=== PATIENT | female | born 1960 | race Caucasian/White ===

== ENCOUNTER 2018-03-26 16:39 | Emergency (ER) | payer OTHER, SELFPAY ==
[2018-03-26 16:43] VITALS: BP 176/84; PULSE 69; RESP 15; TEMP 36.3; O2SAT 100; BMI 22.7
--- NOTE | 2018-03-26 16:57 | DI.RAD.S_ITS ---
PROCEDURE: XR CHEST 1V INDICATIONS: Chest pain TECHNIQUE: One view of the chest was acquired. COMPARISON: None. FINDINGS: Surgical changes and devices: None. Lungs and pleura: Lungs are clear. No pleural effusions or pneumothorax. Mediastinum: Mediastinal contours appear normal. Heart size is normal. Bones and chest wall: No suspicious bony lesions. Overlying soft tissues appear unremarkable. IMPRESSION: Portable chest within normal limits. Dictated by: Kishor Snowden M.D. on 03/26/2018 at 16:28 Approved by: Kishor Snowden M.D. on 03/26/2018 at 16:28
[2018-03-26 17:00] VITALS: BP 144/76; PULSE 58; RESP 16; O2SAT 99
[2018-03-26] MEDS: ASPIRIN 81 MG TAB 324 MG PO (17:06)
--- NOTE | 2018-03-26 17:11 | ED.CHESTPAIN ---
HPI - Chest Pain <Tatyana Hendricks PA-C - Last Filed: 03/26/18 20:23> General Chief Complaint: Chest Pain Stated Complaint: Palpitations Time Seen by Provider: 03/26/18 16:55 Related Data Home Medications Medication Instructions Recorded Confirmed Acetaminophen/Diphenhydramin 1 tab PO HS #0 11/27/10 11/08/17 (#EXCEDRIN PM 500 MG-38 MG) [FISH OIL] #0 11/27/10 11/08/17 [MULTI VITAMIN] #0 11/27/10 11/08/17 aspirin 81 mg PO QDAY #0 06/18/12 11/08/17 Previous Rx's Medication Instructions Recorded triamcinolone acetonide 0 TOPICAL QDAY #30 gm 10/03/15 acyclovir 800 mg PO QDAY #90 tab 08/24/16 ketoconazole 2 % shampoo 1 applictn TOP Q2W #120 ml 11/08/17 montelukast 10 mg tablet 10 mg PO QPM #30 tab 11/08/17 metoprolol tartrate 50 mg tablet 50 mg PO BID #180 tab 02/17/18 Allergies Allergy/AdvReac Type Severity Reaction Status Date / Time adhesive Allergy Mild SENSITIVE Verified 11/08/17 13:31 TO TAPE CAUSES ITCHING PFSH <Tatyana Hendricks PA-C - Last Filed: 03/26/18 20:23> Medical History Carpal tunnel syndrome (Chronic) Chronic back pain (Chronic) Chronic neck pain (Chronic) Hayfever (Chronic) Hypertension (Chronic) Hyperthyroidism (Chronic 2014) SVT (supraventricular tachycardia) (Chronic 2014) Chicken pox (Resolved) Surgical History Anesthesia (Resolved) History of hip replacement (Resolved 11/2010) History of hip replacement (Resolved 06/2012) Social History marital status: Smoking Status: Former smoker alcohol intake: current (ON OCCASION ) substance use type: does not use Social History marital status: Smoking Status: Former smoker alcohol intake: current (ON OCCASION ) substance use type: does not use Exam <Tatyana Hendricks PA-C - Last Filed: 03/26/18 20:23> Initial Vital Signs Initial Vital Signs: Vital Signs Temperature 97.4 F L 03/26/18 16:43 Pulse Rate 69 03/26/18 16:43 Respiratory Rate 15 03/26/18 16:43 Blood Pressure 176/84 H 03/26/18 16:43 Pulse Oximetry 100 03/26/18 16:43 <DO Jeff Wade Last Filed: 04/02/18 00:57> Initial Vital Signs Initial Vital Signs: Vital Signs Temperature 97.4 F L 03/26/18 16:43 Pulse Rate 69 03/26/18 16:43 Respiratory Rate 15 03/26/18 16:43 Blood Pressure 176/84 H 03/26/18 16:43 Pulse Oximetry 100 03/26/18 16:43 Course <SCOTT Adams Last Filed: 03/26/18 20:23> Orders Ordered: Discontinued Medications Aspirin (Aspirin Chew) 324 mg PO NOW ONE Stop: 03/26/18 16:58 Last Admin: 03/26/18 17:06 Dose: 324 mg Vital Signs - 8 hr 03/26/18 18:00 03/26/18 18:30 03/26/18 20:11 Pulse Rate 63 74 72 Respiratory Rate 16 15 14 Blood Pressure [Right Arm] 139/77 137/74 133/66 Pulse Oximetry 100 100 98 <DO Jeff Wade Last Filed: 04/02/18 00:57> Orders Ordered: Discontinued Medications Aspirin (Aspirin Chew) 324 mg PO NOW ONE Stop: 03/26/18 16:58 Last Admin: 03/26/18 17:06 Dose: 324 mg Vital Signs - 8 hr 03/26/18 18:00 03/26/18 18:30 03/26/18 20:11 Pulse Rate 63 74 72 Respiratory Rate 16 15 14 Blood Pressure [Right Arm] 139/77 137/74 133/66 Pulse Oximetry 100 100 98 MDM - Chest Pain <SCOTT Adams Last Filed: 03/26/18 20:23> Lab Data Result diagrams: 03/26/18 17:12 03/26/18 17:12 Lab Results 03/26/18 03/26/18 03/26/18 Range/Units 17:12 17:12 17:12 WBC 6.5 (4.5-11.0) X10^3/uL RBC 4.53 (4.0-5.2) X10^6/uL Hgb 14.3 (12.0-16.0) g/dL Hct 42.2 (36-46) % MCV 93.3 (80-100) fL MCH 31.5 (26-34) PG MCHC 33.8 (30-36) % RDW 13.1 (11.6-14.8) % Plt Count 272 (150-400) X10^3/uL Neut % (Auto) 61.0 (50-75) % Lymph % (Auto) 31.6 (25-40) % Stewart % (Auto) 5.2 (3-14) % Eos % (Auto) 1.0 L (2-4) % Baso % (Auto) 1.2 (0-2) % Neut # (Auto) 4000 (8735-7901) /uL Lymph # (Auto) 2100 (9878-5073) /uL Stewart # (Auto) 300 (0-900) /uL Eos # (Auto) 100 (0-450) /uL Baso # (Auto) 100 (0-100) /uL Sodium 138 (137-145) mmol/L Potassium 4.0 (3.4-5.1) mmol/L Chloride 100 (98-107) mmol/L Carbon Dioxide 27 (22-32) mmol/L BUN 20 H (7-17) mg/dL Creatinine 0.80 (0.52-1.04) mg/dL Estimated GFR > 60.0 (>60) mL/min BUN/Creatinine Ratio 25.0 H (6-22) Glucose 96 (70-100) mg/dL Calcium 9.8 (8.4-10.2) mg/dL Total Bilirubin 0.7 (0.2-1.3) mg/dL AST 41 H (14-36) IU/L ALT 44 (9-52) IU/L Alkaline Phosphatase 72 (38-126) U/L Total Creatine Kinase 219 H (30-135) U/L CK-MB (CK-2) 1.93 (<2.37) ng/mL CK-MB (CK-2) Rel Index 0.9 L (1.5-5.0) % Troponin I < 0.012 (0.01-0.034) ng/mL B-Natriuretic Peptide < 100 (<100) Total Protein 8.2 (6.3-8.2) g/dL Albumin 5.0 (3.5-5.0) g/dL Globulin 3.2 (1.7-4.1) g/dL Albumin/Globulin Ratio 1.6 (1.0-2.8) Lipase 78 (23-300) U/L TSH 2.23 (0.47-4.68) uIU/mL Free T4 1.21 (0.78-2.19) ng/dL 03/26/18 Range/Units 19:07 WBC (4.5-11.0) X10^3/uL RBC (4.0-5.2) X10^6/uL Hgb (12.0-16.0) g/dL Hct (36-46) % MCV (80-100) fL MCH (26-34) PG MCHC (30-36) % RDW (11.6-14.8) % Plt Count (150-400) X10^3/uL Neut % (Auto) (50-75) % Lymph % (Auto) (25-40) % Stewart % (Auto) (3-14) % Eos % (Auto) (2-4) % Baso % (Auto) (0-2) % Neut # (Auto) (0353-7827) /uL Lymph # (Auto) (0764-5263) /uL Stewart # (Auto) (0-900) /uL Eos # (Auto) (0-450) /uL Baso # (Auto) (0-100) /uL Sodium (137-145) mmol/L Potassium (3.4-5.1) mmol/L Chloride (98-107) mmol/L Carbon Dioxide (22-32) mmol/L BUN (7-17) mg/dL Creatinine (0.52-1.04) mg/dL Estimated GFR (>60) mL/min BUN/Creatinine Ratio (6-22) Glucose (70-100) mg/dL Calcium (8.4-10.2) mg/dL Total Bilirubin (0.2-1.3) mg/dL AST (14-36) IU/L ALT (9-52) IU/L Alkaline Phosphatase (38-126) U/L Total Creatine Kinase 200 H (30-135) U/L CK-MB (CK-2) 1.91 (<2.37) ng/mL CK-MB (CK-2) Rel Index 1.0 L (1.5-5.0) % Troponin I < 0.012 (0.01-0.034) ng/mL B-Natriuretic Peptide (<100) Total Protein (6.3-8.2) g/dL Albumin (3.5-5.0) g/dL Globulin (1.7-4.1) g/dL Albumin/Globulin Ratio (1.0-2.8) Lipase (23-300) U/L TSH (0.47-4.68) uIU/mL Free T4 (0.78-2.19) ng/dL Urine Dip Bedside Urine Glucose Negative Bedside Urine Bilirubin - Negative Bedside Urine Ketone +/- 5 Urine Specific [place] 1.010 Bedside Urine Occult Blood - Negative Bedside Urine pH 6.0 Bedside Urine Protein - Negative Bedside Urine Urobilinogen - Negative Bedside Urine Nitrite - Negative Bedside Urine Leukocytes - Negative Esterase <Amita Perez, DO - Last Filed: 04/02/18 00:57> Lab Data Lab Results 03/26/18 03/26/18 03/26/18 Range/Units 17:12 17:12 17:12 WBC 6.5 (4.5-11.0) X10^3/uL RBC 4.53 (4.0-5.2) X10^6/uL Hgb 14.3 (12.0-16.0) g/dL Hct 42.2 (36-46) % MCV 93.3 (80-100) fL MCH 31.5 (26-34) PG MCHC 33.8 (30-36) % RDW 13.1 (11.6-14.8) % Plt Count 272 (150-400) X10^3/uL Neut % (Auto) 61.0 (50-75) % Lymph % (Auto) 31.6 (25-40) % Stewart % (Auto) 5.2 (3-14) % Eos % (Auto) 1.0 L (2-4) % Baso % (Auto) 1.2 (0-2) % Neut # (Auto) 4000 (4210-6540) /uL Lymph # (Auto) 2100 (4568-6191) /uL Stewart # (Auto) 300 (0-900) /uL Eos # (Auto) 100 (0-450) /uL Baso # (Auto) 100 (0-100) /uL Sodium 138 (137-145) mmol/L Potassium 4.0 (3.4-5.1) mmol/L Chloride 100 (98-107) mmol/L Carbon Dioxide 27 (22-32) mmol/L BUN 20 H (7-17) mg/dL Creatinine 0.80 (0.52-1.04) mg/dL Estimated GFR > 60.0 (>60) mL/min BUN/Creatinine Ratio 25.0 H (6-22) Glucose 96 (70-100) mg/dL Calcium 9.8 (8.4-10.2) mg/dL Total Bilirubin 0.7 (0.2-1.3) mg/dL AST 41 H (14-36) IU/L ALT 44 (9-52) IU/L Alkaline Phosphatase 72 (38-126) U/L Total Creatine Kinase 219 H (30-135) U/L CK-MB (CK-2) 1.93 (<2.37) ng/mL CK-MB (CK-2) Rel Index 0.9 L (1.5-5.0) % Troponin I < 0.012 (0.01-0.034) ng/mL B-Natriuretic Peptide < 100 (<100) Total Protein 8.2 (6.3-8.2) g/dL Albumin 5.0 (3.5-5.0) g/dL Globulin 3.2 (1.7-4.1) g/dL Albumin/Globulin Ratio 1.6 (1.0-2.8) Lipase 78 (23-300) U/L TSH 2.23 (0.47-4.68) uIU/mL Free T4 1.21 (0.78-2.19) ng/dL 03/26/18 Range/Units 19:07 WBC (4.5-11.0) X10^3/uL RBC (4.0-5.2) X10^6/uL Hgb (12.0-16.0) g/dL Hct (36-46) % MCV (80-100) fL MCH (26-34) PG MCHC (30-36) % RDW (11.6-14.8) % Plt Count (150-400) X10^3/uL Neut % (Auto) (50-75) % Lymph % (Auto) (25-40) % Stewart % (Auto) (3-14) % Eos % (Auto) (2-4) % Baso % (Auto) (0-2) % Neut # (Auto) (3636-6362) /uL Lymph # (Auto) (6421-1854) /uL Stewart # (Auto) (0-900) /uL Eos # (Auto) (0-450) /uL Baso # (Auto) (0-100) /uL Sodium (137-145) mmol/L Potassium (3.4-5.1) mmol/L Chloride (98-107) mmol/L Carbon Dioxide (22-32) mmol/L BUN (7-17) mg/dL Creatinine (0.52-1.04) mg/dL Estimated GFR (>60) mL/min BUN/Creatinine Ratio (6-22) Glucose (70-100) mg/dL Calcium (8.4-10.2) mg/dL Total Bilirubin (0.2-1.3) mg/dL AST (14-36) IU/L ALT (9-52) IU/L Alkaline Phosphatase (38-126) U/L Total Creatine Kinase 200 H (30-135) U/L CK-MB (CK-2) 1.91 (<2.37) ng/mL CK-MB (CK-2) Rel Index 1.0 L (1.5-5.0) % Troponin I < 0.012 (0.01-0.034) ng/mL B-Natriuretic Peptide (<100) Total Protein (6.3-8.2) g/dL Albumin (3.5-5.0) g/dL Globulin (1.7-4.1) g/dL Albumin/Globulin Ratio (1.0-2.8) Lipase (23-300) U/L TSH (0.47-4.68) uIU/mL Free T4 (0.78-2.19) ng/dL Urine Dip Bedside Urine Glucose Negative Bedside Urine Bilirubin - Negative Bedside Urine Ketone +/- 5 Urine Specific [place] 1.010 Bedside Urine Occult Blood - Negative Bedside Urine pH 6.0 Bedside Urine Protein - Negative Bedside Urine Urobilinogen - Negative Bedside Urine Nitrite - Negative Bedside Urine Leukocytes - Negative Esterase Discharge Plan Departure Patient Disposition: Home Clinical Impression: Heart palpitations, Exertional dyspnea Discharge Date/Time: 03/26/18 20:25 Interventions: ED Discharge Assessment Last Done: 03/26/18 20:24 Instructions: DI for Atypical Chest Pain, DI for Palpitations Activity Restrictions/Additional Instructions: Please return as we talked about if you have any acutely worsening symptoms, or new symptoms such as feeling faint, or new pain or swelling in your extremities, or actual chest pain, arm or jaw pain. Otherwise, please do not over exert but your usual activities are okay. You can take an extra 1/2 metoprolol if needed for your palpitations as you have been advised in the past. As we discussed, I am not sure that your palpitations and the shortness of breath that you have noticed with activity are connected. It is certainly possible that you are a little bit deconditioned since you had changed your exercise routine recently, but we want to the investigate this further with stress testing. I spoke with Dr. Lopez who is industrial relations analyst for Dr. Vipin covarrubias, and she is going to arrange to have you seen in the clinic sooner and get a stress test set up. She said that she will plan to have them call you tomorrow, but also you should call if you have not heard from them by lunchtime. While you are waiting to be seen, please take a baby (81mg) Aspirin once daily Prescriptions: No Action Acetaminophen/Diphenhydramin (#EXCEDRIN PM 500 MG-38 MG) 1 tab PO HS Qty: 0 RF: 0 [MULTI VITAMIN] Qty: 0 RF: 0 [FISH OIL] Qty: 0 RF: 0 aspirin 325 MG tablet,delayed release (DR/EC) 81 mg PO QDAY Qty: 0 RF: 0 triamcinolone acetonide 0.5 % ointment Topical QDAY Qty: 30 RF: 3 acyclovir 800 MG tablet 800 mg PO QDAY Qty: 90 RF: 3 metoprolol tartrate 50 mg tablet 50 mg PO BID Qty: 180 RF: 1 ketoconazole 2 % shampoo 1 applictn TOP Q2W Qty: 120 RF: 1 montelukast 10 mg tablet 10 mg PO QPM Qty: 30 RF: 1 Referrals: Tanya Lew MD [Primary Care Provider] - <Amita Perez DO - Last Filed: 04/02/18 00:57> Cosign ED Attending Cosignature Attestation: I was immediately available in the department for consultation. Documentation has been reviewed. I agree with assessment and plan. unfortunately chart information has been deleted and this will need to be redone by the original APC.
--- NOTE | 2018-03-26 17:16 | ED_ITS ---
HPI - Chest Pain <Tatyana Hendricks PA-C - Last Filed: 03/26/18 20:23> General Chief Complaint: Chest Pain Stated Complaint: Palpitations Time Seen by Provider: 03/26/18 16:55 Related Data Home Medications Medication Instructions Recorded Confirmed Acetaminophen/Diphenhydramin 1 tab PO HS #0 11/27/10 11/08/17 (#EXCEDRIN PM 500 MG-38 MG) [FISH OIL] #0 11/27/10 11/08/17 [MULTI VITAMIN] #0 11/27/10 11/08/17 aspirin 81 mg PO QDAY #0 06/18/12 11/08/17 Previous Rx's Medication Instructions Recorded triamcinolone acetonide 0 TOPICAL QDAY #30 gm 10/03/15 acyclovir 800 mg PO QDAY #90 tab 08/24/16 ketoconazole 2 % shampoo 1 applictn TOP Q2W #120 ml 11/08/17 montelukast 10 mg tablet 10 mg PO QPM #30 tab 11/08/17 metoprolol tartrate 50 mg tablet 50 mg PO BID #180 tab 02/17/18 Allergies Allergy/AdvReac Type Severity Reaction Status Date / Time adhesive Allergy Mild SENSITIVE Verified 11/08/17 13:31 TO TAPE CAUSES ITCHING PFSH <Tatyana Hendricks PA-C - Last Filed: 03/26/18 20:23> Medical History Carpal tunnel syndrome (Chronic) Chronic back pain (Chronic) Chronic neck pain (Chronic) Hayfever (Chronic) Hypertension (Chronic) Hyperthyroidism (Chronic 2014) SVT (supraventricular tachycardia) (Chronic 2014) Chicken pox (Resolved) Surgical History Anesthesia (Resolved) History of hip replacement (Resolved 11/2010) History of hip replacement (Resolved 06/2012) Social History marital status: Smoking Status: Former smoker alcohol intake: current (ON OCCASION ) substance use type: does not use Social History marital status: Smoking Status: Former smoker alcohol intake: current (ON OCCASION ) substance use type: does not use Exam <Tatyana Hendricks PA-C - Last Filed: 03/26/18 20:23> Initial Vital Signs Initial Vital Signs: Vital Signs Temperature 97.4 F L 03/26/18 16:43 Pulse Rate 69 03/26/18 16:43 Respiratory Rate 15 03/26/18 16:43 Blood Pressure 176/84 H 03/26/18 16:43 Pulse Oximetry 100 03/26/18 16:43 <DO Jeff Wade Last Filed: 04/02/18 00:57> Initial Vital Signs Initial Vital Signs: Vital Signs Temperature 97.4 F L 03/26/18 16:43 Pulse Rate 69 03/26/18 16:43 Respiratory Rate 15 03/26/18 16:43 Blood Pressure 176/84 H 03/26/18 16:43 Pulse Oximetry 100 03/26/18 16:43 Course <SCOTT Adams Last Filed: 03/26/18 20:23> Orders Ordered: Discontinued Medications Aspirin (Aspirin Chew) 324 mg PO NOW ONE Stop: 03/26/18 16:58 Last Admin: 03/26/18 17:06 Dose: 324 mg Vital Signs - 8 hr 03/26/18 18:00 03/26/18 18:30 03/26/18 20:11 Pulse Rate 63 74 72 Respiratory Rate 16 15 14 Blood Pressure [Right Arm] 139/77 137/74 133/66 Pulse Oximetry 100 100 98 <DO Jeff Wade Last Filed: 04/02/18 00:57> Orders Ordered: Discontinued Medications Aspirin (Aspirin Chew) 324 mg PO NOW ONE Stop: 03/26/18 16:58 Last Admin: 03/26/18 17:06 Dose: 324 mg Vital Signs - 8 hr 03/26/18 18:00 03/26/18 18:30 03/26/18 20:11 Pulse Rate 63 74 72 Respiratory Rate 16 15 14 Blood Pressure [Right Arm] 139/77 137/74 133/66 Pulse Oximetry 100 100 98 MDM - Chest Pain <SCOTT Adams Last Filed: 03/26/18 20:23> Lab Data Result diagrams: 03/26/18 17:12 03/26/18 17:12 Lab Results 03/26/18 03/26/18 03/26/18 Range/Units 17:12 17:12 17:12 WBC 6.5 (4.5-11.0) X10^3/uL RBC 4.53 (4.0-5.2) X10^6/uL Hgb 14.3 (12.0-16.0) g/dL Hct 42.2 (36-46) % MCV 93.3 (80-100) fL MCH 31.5 (26-34) PG MCHC 33.8 (30-36) % RDW 13.1 (11.6-14.8) % Plt Count 272 (150-400) X10^3/uL Neut % (Auto) 61.0 (50-75) % Lymph % (Auto) 31.6 (25-40) % [place]ayer % (Auto) 5.2 (3-14) % Eos % (Auto) 1.0 L (2-4) % Baso % (Auto) 1.2 (0-2) % Neut # (Auto) 4000 (3295-5765) /uL Lymph # (Auto) 2100 (6946-3822) /uL [place]ayer # (Auto) 300 (0-900) /uL Eos # (Auto) 100 (0-450) /uL Baso # (Auto) 100 (0-100) /uL Sodium 138 (137-145) mmol/L Potassium 4.0 (3.4-5.1) mmol/L Chloride 100 (98-107) mmol/L Carbon Dioxide 27 (22-32) mmol/L BUN 20 H (7-17) mg/dL Creatinine 0.80 (0.52-1.04) mg/dL Estimated GFR > 60.0 (>60) mL/min BUN/Creatinine Ratio 25.0 H (6-22) Glucose 96 (70-100) mg/dL Calcium 9.8 (8.4-10.2) mg/dL Total Bilirubin 0.7 (0.2-1.3) mg/dL AST 41 H (14-36) IU/L ALT 44 (9-52) IU/L Alkaline Phosphatase 72 (38-126) U/L Total Creatine Kinase 219 H (30-135) U/L CK-MB (CK-2) 1.93 (<2.37) ng/mL CK-MB (CK-2) Rel Index 0.9 L (1.5-5.0) % Troponin I < 0.012 (0.01-0.034) ng/mL B-Natriuretic Peptide < 100 (<100) Total Protein 8.2 (6.3-8.2) g/dL Albumin 5.0 (3.5-5.0) g/dL Globulin 3.2 (1.7-4.1) g/dL Albumin/Globulin Ratio 1.6 (1.0-2.8) Lipase 78 (23-300) U/L TSH 2.23 (0.47-4.68) uIU/mL Free T4 1.21 (0.78-2.19) ng/dL 03/26/18 Range/Units 19:07 WBC (4.5-11.0) X10^3/uL RBC (4.0-5.2) X10^6/uL Hgb (12.0-16.0) g/dL Hct (36-46) % MCV (80-100) fL MCH (26-34) PG MCHC (30-36) % RDW (11.6-14.8) % Plt Count (150-400) X10^3/uL Neut % (Auto) (50-75) % Lymph % (Auto) (25-40) % [place] % (Auto) (3-14) % Eos % (Auto) (2-4) % Baso % (Auto) (0-2) % Neut # (Auto) (3713-4986) /uL Lymph # (Auto) (6655-4184) /uL [place] # (Auto) (0-900) /uL Eos # (Auto) (0-450) /uL Baso # (Auto) (0-100) /uL Sodium (137-145) mmol/L Potassium (3.4-5.1) mmol/L Chloride (98-107) mmol/L Carbon Dioxide (22-32) mmol/L BUN (7-17) mg/dL Creatinine (0.52-1.04) mg/dL Estimated GFR (>60) mL/min BUN/Creatinine Ratio (6-22) Glucose (70-100) mg/dL Calcium (8.4-10.2) mg/dL Total Bilirubin (0.2-1.3) mg/dL AST (14-36) IU/L ALT (9-52) IU/L Alkaline Phosphatase (38-126) U/L Total Creatine Kinase 200 H (30-135) U/L CK-MB (CK-2) 1.91 (<2.37) ng/mL CK-MB (CK-2) Rel Index 1.0 L (1.5-5.0) % Troponin I < 0.012 (0.01-0.034) ng/mL B-Natriuretic Peptide (<100) Total Protein (6.3-8.2) g/dL Albumin (3.5-5.0) g/dL Globulin (1.7-4.1) g/dL Albumin/Globulin Ratio (1.0-2.8) Lipase (23-300) U/L TSH (0.47-4.68) uIU/mL Free T4 (0.78-2.19) ng/dL Urine Dip Bedside Urine Glucose Negative Bedside Urine Bilirubin - Negative Bedside Urine Ketone +/- 5 Urine Specific [place] 1.010 Bedside Urine Occult Blood - Negative Bedside Urine pH 6.0 Bedside Urine Protein - Negative Bedside Urine Urobilinogen - Negative Bedside Urine Nitrite - Negative Bedside Urine Leukocytes - Negative Esterase <Amita Perez, DO - Last Filed: 04/02/18 00:57> Lab Data Lab Results 03/26/18 03/26/18 03/26/18 Range/Units 17:12 17:12 17:12 WBC 6.5 (4.5-11.0) X10^3/uL RBC 4.53 (4.0-5.2) X10^6/uL Hgb 14.3 (12.0-16.0) g/dL Hct 42.2 (36-46) % MCV 93.3 (80-100) fL MCH 31.5 (26-34) PG MCHC 33.8 (30-36) % RDW 13.1 (11.6-14.8) % Plt Count 272 (150-400) X10^3/uL Neut % (Auto) 61.0 (50-75) % Lymph % (Auto) 31.6 (25-40) % [place] % (Auto) 5.2 (3-14) % Eos % (Auto) 1.0 L (2-4) % Baso % (Auto) 1.2 (0-2) % Neut # (Auto) 4000 (2102-1619) /uL Lymph # (Auto) 2100 (6181-9069) /uL [place] # (Auto) 300 (0-900) /uL Eos # (Auto) 100 (0-450) /uL Baso # (Auto) 100 (0-100) /uL Sodium 138 (137-145) mmol/L Potassium 4.0 (3.4-5.1) mmol/L Chloride 100 (98-107) mmol/L Carbon Dioxide 27 (22-32) mmol/L BUN 20 H (7-17) mg/dL Creatinine 0.80 (0.52-1.04) mg/dL Estimated GFR > 60.0 (>60) mL/min BUN/Creatinine Ratio 25.0 H (6-22) Glucose 96 (70-100) mg/dL Calcium 9.8 (8.4-10.2) mg/dL Total Bilirubin 0.7 (0.2-1.3) mg/dL AST 41 H (14-36) IU/L ALT 44 (9-52) IU/L Alkaline Phosphatase 72 (38-126) U/L Total Creatine Kinase 219 H (30-135) U/L CK-MB (CK-2) 1.93 (<2.37) ng/mL CK-MB (CK-2) Rel Index 0.9 L (1.5-5.0) % Troponin I < 0.012 (0.01-0.034) ng/mL B-Natriuretic Peptide < 100 (<100) Total Protein 8.2 (6.3-8.2) g/dL Albumin 5.0 (3.5-5.0) g/dL Globulin 3.2 (1.7-4.1) g/dL Albumin/Globulin Ratio 1.6 (1.0-2.8) Lipase 78 (23-300) U/L TSH 2.23 (0.47-4.68) uIU/mL Free T4 1.21 (0.78-2.19) ng/dL 03/26/18 Range/Units 19:07 WBC (4.5-11.0) X10^3/uL RBC (4.0-5.2) X10^6/uL Hgb (12.0-16.0) g/dL Hct (36-46) % MCV (80-100) fL MCH (26-34) PG MCHC (30-36) % RDW (11.6-14.8) % Plt Count (150-400) X10^3/uL Neut % (Auto) (50-75) % Lymph % (Auto) (25-40) % [place] % (Auto) (3-14) % Eos % (Auto) (2-4) % Baso % (Auto) (0-2) % Neut # (Auto) (2171-8722) /uL Lymph # (Auto) (6429-5521) /uL [place] # (Auto) (0-900) /uL Eos # (Auto) (0-450) /uL Baso # (Auto) (0-100) /uL Sodium (137-145) mmol/L Potassium (3.4-5.1) mmol/L Chloride (98-107) mmol/L Carbon Dioxide (22-32) mmol/L BUN (7-17) mg/dL Creatinine (0.52-1.04) mg/dL Estimated GFR (>60) mL/min BUN/Creatinine Ratio (6-22) Glucose (70-100) mg/dL Calcium (8.4-10.2) mg/dL Total Bilirubin (0.2-1.3) mg/dL AST (14-36) IU/L ALT (9-52) IU/L Alkaline Phosphatase (38-126) U/L Total Creatine Kinase 200 H (30-135) U/L CK-MB (CK-2) 1.91 (<2.37) ng/mL CK-MB (CK-2) Rel Index 1.0 L (1.5-5.0) % Troponin I < 0.012 (0.01-0.034) ng/mL B-Natriuretic Peptide (<100) Total Protein (6.3-8.2) g/dL Albumin (3.5-5.0) g/dL Globulin (1.7-4.1) g/dL Albumin/Globulin Ratio (1.0-2.8) Lipase (23-300) U/L TSH (0.47-4.68) uIU/mL Free T4 (0.78-2.19) ng/dL Urine Dip Bedside Urine Glucose Negative Bedside Urine Bilirubin - Negative Bedside Urine Ketone +/- 5 Urine Specific Weiner 1.010 Bedside Urine Occult Blood - Negative Bedside Urine pH 6.0 Bedside Urine Protein - Negative Bedside Urine Urobilinogen - Negative Bedside Urine Nitrite - Negative Bedside Urine Leukocytes - Negative Esterase Discharge Plan Departure Patient Disposition: Home Clinical Impression: Heart palpitations, Exertional dyspnea Discharge Date/Time: 03/26/18 20:25 Interventions: ED Discharge Assessment Last Done: 03/26/18 20:24 Instructions: DI for Atypical Chest Pain, DI for Palpitations Activity Restrictions/Additional Instructions: Please return as we talked about if you have any acutely worsening symptoms, or new symptoms such as feeling faint, or new pain or swelling in your extremities, or actual chest pain, arm or jaw pain. Otherwise, please do not over exert but your usual activities are okay. You can take an extra 1/2 metoprolol if needed for your palpitations as you have been advised in the past. As we discussed, I am not sure that your palpitations and the shortness of breath that you have noticed with activity are connected. It is certainly possible that you are a little bit deconditioned since you had changed your exercise routine recently, but we want to the investigate this further with stress testing. I spoke with Dr. Lopez who is tactical air control party for Dr. Vipin covarrubias, and she is going to arrange to have you seen in the clinic sooner and get a stress test set up. She said that she will plan to have them call you tomorrow, but also you should call if you have not heard from them by lunchtime. While you are waiting to be seen, please take a baby (81mg) Aspirin once daily Prescriptions: No Action Acetaminophen/Diphenhydramin (#EXCEDRIN PM 500 MG-38 MG) 1 tab PO HS Qty: 0 RF: 0 [MULTI VITAMIN] Qty: 0 RF: 0 [FISH OIL] Qty: 0 RF: 0 aspirin 325 MG tablet,delayed release (DR/EC) 81 mg PO QDAY Qty: 0 RF: 0 triamcinolone acetonide 0.5 % ointment Topical QDAY Qty: 30 RF: 3 acyclovir 800 MG tablet 800 mg PO QDAY Qty: 90 RF: 3 metoprolol tartrate 50 mg tablet 50 mg PO BID Qty: 180 RF: 1 ketoconazole 2 % shampoo 1 applictn TOP Q2W Qty: 120 RF: 1 montelukast 10 mg tablet 10 mg PO QPM Qty: 30 RF: 1 Referrals: Tanya Lew MD [Primary Care Provider] - <Amita Perez DO - Last Filed: 04/02/18 00:57> Cosign ED Attending Cosignature Attestation: I was immediately available in the department for consultation. Documentation has been reviewed. I agree with ass essment and plan. unfortunately chart information has been deleted and this will need to be redone by the original APC.
[2018-03-26 17:17] LABS: Add Manual Diff / Slide Review NO; Basophils Absolute Auto 100 /uL (0-100); Basophils Percent Auto 1.2 % (0-2); Eosinophils Absolute Auto 100 /uL (0-450); Hematocrit 42.2 % (36-46); Hemoglobin 14.3 g/dL (12.0-16.0); Lymphocytes Absolute Auto 2100 /uL (1100-4500); Lymphocytes Percent Auto 31.6 % (25-40); Mean Corpuscular HGB Conc 33.8 % (30-36); Mean Corpuscular Hemoglobin 31.5 PG (26-34); Mean Corpuscular Volume 93.3 fL (80-100); Monocytes Absolute Auto 300 /uL (0-900); Monocytes Percent Auto 5.2 % (3-14); Neutrophils Absolute Auto 4000 /uL (1500-7000); Platelet Count 272 X10^3/uL (150-400); Red Blood Cell Count 4.53 X10^6/uL (4.0-5.2); Red Cell Distribution Width 13.1 % (11.6-14.8); White Blood Cell Count 6.5 X10^3/uL (4.5-11.0)
[2018-03-26 17:29] LABS: Alanine Aminotransferase 44 IU/L (9-52); Albumin Globulin Ratio 1.6 (1.0-2.8); Alkaline Phosphatase 72 U/L (38-126); Aspartate Aminotransferase 41 IU/L (14-36); Bilirubin Total 0.7 mg/dL (0.2-1.3); Blood Urea Nitrogen 20 mg/dL (7-17); Calcium 9.8 mg/dL (8.4-10.2); Carbon Dioxide 27 mmol/L (22-32); Chloride 100 mmol/L (98-107); Creatine Kinase 219 U/L (30-135); Estimated Glomerular Filt Rate > 60.0 mL/min (>60); Globulin 3.2 g/dL (1.7-4.1); Glucose 96 mg/dL (70-100); HEMOLYSIS < 15 (0-50); Lipase 78 U/L (23-300); Sodium 138 mmol/L (137-145); Total Protein 8.2 g/dL (6.3-8.2)
[2018-03-26 17:30] VITALS: BP 127/71; PULSE 60; RESP 15; O2SAT 99
[2018-03-26 17:39] LABS: B Type Natriuretic Peptide < 100 (<100)
[2018-03-26 17:43] LABS: Troponin I < 0.012 ng/mL (0.01-0.034)
[2018-03-26 17:44] LABS: CKMB % Relative Index 0.9 % (1.5-5.0); Creatine Kinase MB 1.93 ng/mL (<2.37)
[2018-03-26 18:00] VITALS: BP 139/77; PULSE 63; RESP 16; O2SAT 100
[2018-03-26 18:28] LABS: Free T4, Direct Thyroxine 1.21 ng/dL (0.78-2.19)
[2018-03-26 18:30] VITALS: BP 137/74; PULSE 74; RESP 15; O2SAT 100
[2018-03-26 18:42] LABS: Thyroid Stimulating Hormone 2.23 uIU/mL (0.47-4.68)
[2018-03-26 19:30] LABS: Creatine Kinase 200 U/L (30-135)
[2018-03-26 19:42] LABS: Troponin I < 0.012 ng/mL (0.01-0.034)
[2018-03-26 19:46] LABS: Creatine Kinase MB 1.91 ng/mL (<2.37)
[2018-03-26 20:11] VITALS: BP 133/66; PULSE 72; RESP 14; O2SAT 98
== END 2018-03-26 20:25 | disposition home or self-care (01) ==
PROVIDERS: Emergency Provider Internal Medicine; Family Provider Family Medicine; PCP Family Medicine
DX: R00.2 Palpitations (principal); R06.09 Other forms of dyspnea
CPT/HCPCS: 36415; 71045; 80053; 81003; 82550; 82553; 83690; 83880; 84439; 84443; 84484; 85025; 93005; 99283; 99285

== ENCOUNTER → 2021-12-14 11:08 | Outpatient (CLI) | payer OTHER, SELFPAY ==
--- NOTE | 2021-12-14 11:10 | DI.RAD.S_ITS ---
PROCEDURE: XR HIP W PEL IF DONE MK MIN 4V INDICATIONS: right hip pain - decreased ROM TECHNIQUE: AP pelvis with lateral view(s) of the right and left hip(s). COMPARISON: [facility], , HIP 2V RIGHT, 03/13/2012, 16:08. FINDINGS: Bones: Prior bilateral hip arthroplasty. Hardware appears intact. No acute fractures or dislocations. Pelvic ring appears intact. No suspicious bony lesions. Soft tissues: The visualized bowel gas pattern is normal. No suspicious soft tissue calcifications. IMPRESSION: 1. No acute osseous abnormality. If symptoms persist, follow-up radiographs and/or CT may be helpful for further evaluation. 2. Bilateral hip arthroplasty. Dictated by: Chip Uriarte M.D. on 12/14/2021 at 13:24 Approved by: Chip Uriarte M.D. on 12/14/2021 at 13:27
== END ==
PROVIDERS: Family Provider Family Medicine; PCP Family Medicine; Referring Provider Physician Assistant; Visit Provider Physician Assistant
DX: M25.551 Pain in right hip (principal); Z96.643 Presence of artificial hip joint, bilateral
CPT/HCPCS: 73522

== ENCOUNTER → 2022-03-01 12:49 | Outpatient (CLI) | payer OTHER, SELFPAY ==
--- NOTE | 2022-03-26 13:54 | PM.CARDMON.1 ---
Avid Editor Report Referral & Results Date Patient Seen: 03/01/22 Requesting provider: Tanya Lew Indication: Chest pain Duration of monitoring (days): 14 Diary information: There were 56 patient triggered events and 8 patient diary entries Patient triggered events were variably associated with (within 45 seconds) sinus rhythm, PVCs, PACs, and SVT Patient diary events could not be correlated Data: Minimum heart rate identified was 44 beats per minute at 02:31 on 03/06/2022 Maximum sinus heart rate was 141 beats per minute at 13:15 on 03/12/2022 Maximum overall heart rate was 174 beats per minute at 13:26 on 03/12/2022 during a run of SVT Less than 1% of identified beats were ventricular or supraventricular ectopic in origin, which would classify them as rare. There were 30 runs of SVT the fastest being a 5 beat run at the above rate of 174 beats per minute, the longest lasting 45.6 seconds at a rate of 120 beats per minute which suggest possible atrial tachycardia rather than true SVT Impression: 14 day cardiac nurse practitioner demonstrating rare brief runs of SVT as well as rare PVCs and PACs No clear correlation between patient events and any one particular dysrhythmia Clinical correlation suggested
== END ==
PROVIDERS: Family Provider Family Medicine; PCP Family Medicine; Referring Provider Family Medicine; Visit Provider Family Medicine
DX: R07.89 Other chest pain (principal)
CPT/HCPCS: 93246; 93248

== ENCOUNTER → 2022-05-21 07:45 | Outpatient (CLI) | payer OTHER, SELFPAY ==
--- NOTE | 2022-05-21 07:48 | DI.NM.S_ITS ---
PROCEDURE: NM EXERCISE TREADMILL NON NUC COMPARISON: None. INDICATIONS: atypical chest pain FINDINGS: The patient exercised for 9 minutes and 32 seconds, reaching 92% of maximum predicted heart rate. Excellent exercise tolerance (9.7METs, SABA -47%). Appropriate BP response to exercise. No angina, no diagnostic ST changes, and no ectopy during the study. IMPRESSION: Low risk, normal treadmill ECG only stress test with excellent exercise tolerance (SABA -47%). Dictated by: Roland Son MD on 05/21/2022 at 15:04 Approved by: Roland Son MD on 05/21/2022 at 15:05
== END ==
PROVIDERS: Family Provider Family Medicine; PCP Family Medicine; Referring Provider Family Medicine; Visit Provider Family Medicine
DX: R07.89 Other chest pain (principal)
CPT/HCPCS: 93017

== ENCOUNTER 2022-05-28 12:03 | Emergency (ER) | payer OTHER, SELFPAY ==
[2022-05-28] VITALS (10 sets, daily range): BP systolic 120–206; BP diastolic 64–83; PULSE 0–61; RESP 15–18; TEMP 36.6; O2SAT 94–100; BMI 23.8
--- NOTE | 2022-05-28 12:32 | ED.HEATRA ---
HPI - Head Injury General Chief complaint: Head Injury Stated complaint: hit head saturday phys ref Time Seen by Provider: 05/28/22 12:32 Source: patient Mode of arrival: Ambulatory History of Present Illness HPI Narrative: 62-year-old female former smoker with history of hypertension and hyperlipidemia presents for evaluation of a head injury with ongoing symptoms. She states that on Saturday [place] beach looking [place] items on the ground and did not notice a large piece of driftwood which she struck her head on. She denies any loss of consciousness and does not take blood thinners. She denies other injury. She states that she had initially had what acted much like a ocular migraine and the pain has since resolved. She denies any neurologic symptoms such as numbness, tingling or weakness. Her ongoing symptoms that brought her here which are causing concern is a fullness in her head, some mild nausea, delay in responding to questions and some foggy thought processes. She had initially presented to the walk-in clinic but was sent here for further evaluation and likely head CT Related Data Home Medications Medication Instructions Recorded Confirmed [FISH OIL] ##0 11/27/10 02/22/22 [MULTI VITAMIN] ##0 11/27/10 02/22/22 aspirin 325 mg tablet,delayed 81 mg PO QDAY ##0 11/17/21 02/22/22 release Previous Rx's Medication Instructions Recorded metoprolol tartrate 100 mg tablet See Rx Instructions .Route 11/17/21 .COMPLEX #180 tabs atorvastatin 20 mg tablet See Rx Instructions .Route 03/08/22 .COMPLEX #90 tabs ondansetron 4 mg disintegrating 4 mg PO TID-QID PRN nausea and 05/28/22 tablet vomiting #10 tabs Allergies Allergy/AdvReac Type Severity Reaction Status Date / Time adhesive Allergy Mild SENSITIVE Verified 11/17/21 14:16 TO TAPE CAUSES ITCHING Review of Systems Review of Systems Narrative: GENERAL: Denies chills, fatigue, malaise, fever, sweats. HEENT: Denies sinus pain, ear pain, sore throat, difficulty swallowing, dizziness. RESPIRATORY: Denies dyspnea, cough, wheezing, hemoptysis, sputum. CARDIOVASCULAR: Denies chest pain, palpitations, orthopnea, edema, GASTROINTESTINAL: Denies nausea, vomiting, abdominal pain, diarrhea, constipation, melena. : Denies dysuria, frequency, incontinence, hematuria, urinary retention. MUSCULOSKELETAL: denies weakness, joint pain, or bony pain SKIN: Denies rash, skin lesions, or other NEUROLOGIC: See HPI PSYCHIATRIC: No concerning psychosocial issues. 12 point review of systems is negative except for those stated above Patient History Medical History Carpal tunnel syndrome Chicken pox Chronic back pain Chronic neck pain Hayfever Heart palpitations Herpes Hypertension Hyperthyroidism (2015) SVT (supraventricular tachycardia) (2014) Surgical History Anesthesia History of hip replacement (11/2010) History of hip replacement (06/2012) Social History marital status: household members: none lives independently: Yes occupational status: employed Smoking Status: Former smoker alcohol intake: current substance use type: does not use Smoking Status: Former smoker alcohol intake frequency: a few times a week Substance Use Type: does not use Exam Narrative Exam Narrative: GENERAL: [62] year old patient appears stated age. Well-developed patient, in mild distress. GCS 15 HEAD: Atraumatic. Normocephalic. No swelling, contusion, evidence of depressed skull fracture EYES: Pupils equal round and reactive. Extraocular motions intact. No scleral icterus. No injection or drainage. ENT: Nose without bleeding, purulent drainage. Throat without erythema, tonsillar hypertrophy or exudate. Airway patent. NECK: Trachea midline. Non tender CARDIOVASCULAR: Regular rate and rhythm without murmurs, gallops, or rubs. RESPIRATORY: Clear to auscultation. Breath sounds equal bilaterally. No wheezes, rales, or rhonchi. GASTROINTESTINAL: Abdomen soft, non-tender, nondistended. EXTREMITIES: No edema or joint tenderness. BACK: Nontender without deformity or crepitance. No flank tenderness. NEURO: AOx3. SKIN: No rash or erythema of visible areas NIH Stroke Scale 1a. LOC: Patient is alert and keenly responsive (0) 1b. LOC Questions: Patient answers both LOC questions accurately (0) 1c. LOC Commands: Patient performs both tasks correctly (0) 2. Best Gaze: Normal (0) 3. Visual: No visual loss (0) 4. Facial palsy: Normal symmetrical movements (0) 5. Motor arm: No drift (0) 6. Motor leg: No drift (0) 7. Limb ataxia: Absent (0) 8. Sensory: Normal (0) 9. Best language: No aphasia; normal (0) 10. Dysarthria: Normal (0) 11. Extinction and inattention: No abnormality (0) NIHSS: 0 Initial Vital Signs Initial Vital Signs: Vital Signs Pulse Rate 0 L 05/28/22 04:08 Course Orders Ordered: ED Orders 05/28/22 12:38 CT head/brain wo con Stat Vital Signs Vital signs: Vital Signs - 8 hr 05/28/22 12:16 05/28/22 12:08 05/28/22 12:10 Temperature 97.8 F Pulse Rate 52 L 61 55 L Respiratory Rate 18 Blood Pressure 206/83 H Pulse Oximetry 100 94 100 Oxygen Delivery Method Room Air 05/28/22 12:10 05/28/22 12:30 05/28/22 12:31 Temperature Pulse Rate 51 L 52 L Respiratory Rate 18 Blood Pressure 206/83 H Pulse Oximetry 100 100 Oxygen Delivery Method 05/28/22 12:31 05/28/22 12:53 05/28/22 12:53 Temperature Pulse Rate 53 L Respiratory Rate 15 Blood Pressure 133/64 150/72 H Pulse Oximetry 100 Oxygen Delivery Method 05/28/22 13:00 05/28/22 13:01 05/28/22 13:01 Temperature Pulse Rate 56 L 54 L Respiratory Rate Blood Pressure 122/71 Pulse Oximetry 100 100 Oxygen Delivery Method 05/28/22 13:23 05/28/22 13:23 Temperature Pulse Rate 60 Respiratory Rate Blood Pressure 120/81 Pulse Oximetry 99 Oxygen Delivery Method MDM - Head Injury MDM Narrative Medical decision making narrative: [62] year old patient presents with persistent neurologic symptoms after head injury Multiple etiologies for patient's symptoms considered including, but not limited to: [Concussion versus intracranial hemorrhage versus other] Prior Charts reviewed in our EMR Primary Historian: patient Imaging reviewed: #415 - Emergency Medicine: Utilization of CT for Minor Blunt Head Trauma (Adult) Patient is 18 or older, presenting with minor blunt head trauma. Head CT (including cosigned orders) was ordered by an emergency respiratory care specialist for trauma because the patient: [ ] is vomiting\ severe/dangerous mechanism of injury was identified [ ] is experiencing a severe headache [ ] sustained loss of consciousness [ ] GCS less than 15 [ ] is experiencing amnesia of the event or focal neurologic deficit [ ] sustained injury above the clavicles [ ] is suspected of taking anticoagulant medications [ ] is 65 years or older [ ] is intoxicated Patient has one or more of the following conditions that are excluded from the measure: [ ] Patient has ventricular shunt [ ] Patient has brain tumor [ ] Patient is [ ] Patient has multi-system trauma [x ] Patient taking an antiplatelet medication (excluding aspirin) Patient's symptoms improved over duration of stay with above-stated therapies. Findings and discharge diagnosis discussed with patient/family followed by verbalization of understanding Return precautions discussed with patient/family whom verbalize understanding of diagnosis and plan Discharge Plan Departure Patient Disposition: Home Clinical Impression: Concussion without loss of consciousness Instructions: Concussion Activity Restrictions/Additional Instructions: *You have been diagnosed with [head injury resulting in [id number] concussion. As we discussed your history and physical exam are reassuring and CT scan showed no evidence of bleeding] *What to do: *Please continue to take your regular medications as directed. [ x] New medication prescriptions sent to your pharmacy: [[facility] ] [ ] New medication written as a paper prescription [ ] No new medications given *Please follow up with your primary care provider in 2-3 days, call for an appointment. Let them know you were seen in the Emergency Department and that we ask that you be seen in follow up. We will electronically transmit a record of today's note if your PCP is in our system * You have a slight concussion and will likely have a mild headache and some nausea for a few days. Avoiding highly stimulating activities and even TV or computers may be helpful in minimizing your symptoms. Avoid activities that will put you at risk for another head injury for at least a week. You can take tylenol or motrin for headache or the prescription provided for nausea/vomiting. Return for worsening or persistent symptoms *Return to Emergency Department if you should have any new, worsening or concerning symptoms, such as [fever greater than 101 F, shaking chills, worsening pain, persistent vomiting or other bothersome symptoms] Prescriptions: New ondansetron 4 mg tablet,disintegrating 4 mg PO TID-QID PRN (Reason: nausea and vomiting) Qty: 10 0RF No Action metoprolol tartrate 100 mg tablet See Rx Instructions .ROUTE .COMPLEX Qty: 180 3RF Dose Instruction: TAKE ONE TABLET BY MOUTH TWICE DAILY Rx Instructions: TAKE ONE TABLET BY MOUTH TWICE DAILY [MULTI VITAMIN] Qty: 0 [FISH OIL] Qty: 0 aspirin 325 mg tablet,delayed release (DR/EC) 81 mg PO QDAY Qty: 0 atorvastatin 20 mg tablet See Rx Instructions .ROUTE .COMPLEX Qty: 90 0RF Dose Instruction: TAKE ONE TABLET BY MOUTH NIGHTLY AT BEDTIME Rx Instructions: TAKE ONE TABLET BY MOUTH NIGHTLY AT BEDTIME Referrals: Tanya Lew MD [Primary Care Provider] - Stand Alone Forms: Patient Portal/API
--- NOTE | 2022-05-28 12:38 | DI.CT.S_ITS ---
PROCEDURE: CT HEAD/BRAIN WO CON INDICATIONS: head injury, ongoing symptoms TECHNIQUE: Noncontrast 4.5 mm thick angled axial sections acquired from the foramen magnum to the vertex, with coronal and sagittal reformats. For radiation dose reduction, the following was used: automated exposure control, adjustment of mA and/or kV according to patient size. COMPARISON: None. FINDINGS: Image quality: Excellent. CSF spaces: Basal cisterns are patent. No extra-axial fluid collections. Ventricles are normal in size and shape. Brain: No midline shift. No intracranial masses or hemorrhage. James-white matter interface is normal. Skull and face: Calvarium and visualized facial bones are intact, without suspicious lesions. Sinuses: Visualized sinuses and mastoids are clear. IMPRESSION: No acute intracranial pathology. Dictated by: Evens Kinsey M.D. on 05/28/2022 at 13:09 Approved by: Evens Kinsey M.D. on 05/28/2022 at 13:13
== END 2022-05-28 13:26 | disposition home or self-care (01) ==
PROVIDERS: Emergency Provider Emergency Medicine; Family Provider Family Medicine; PCP Family Medicine
DX: S06.0X0A Concussion without loss of consciousness, initial encounter (principal); W22.8XXA Striking against or struck by other objects, initial encounter
CPT/HCPCS: 70450; 99283; 99284

== ENCOUNTER → 2022-07-30 10:38 | Outpatient (CLI) | payer OTHER, SELFPAY ==
--- NOTE | 2022-07-30 10:39 | DI.MRI.S_ITS ---
PROCEDURE: MR HEAD/BRAIN WO CON INDICATIONS: postconcussive syndrome TECHNIQUE: Non-contrast axial T1 spin echo, axial T2 fast spin echo, sagittal and axial FLAIR, coronal T2 fast spin echo, axial gradient echo, axial diffusion and ADC through the brain. COMPARISON: None. FINDINGS: Image quality: This examination is limited by involuntary motion artifact. CSF spaces: Ventricles appear symmetric in size and shape. Basal cisterns are patent. No extra-axial fluid collections. Brain: No intracranial bleeds or mass effects. There is cerebral volume loss for age. There are periventricular and deep white matter chronic small vessel ischemic changes. Brainstem appears normal. Diffusion-weighted images show no acute ischemic insults. No chronic ischemic insults. Normal intravascular flow voids are present. Skull and face: Calvarial bone marrow is normal in signal. Orbits are normal. Sinuses: Sinuses and mastoids are clear. IMPRESSION: No intracranial hemorrhage is seen. No significant brain abnormality is seen for age. Dictated by: Kishor Snowden M.D. on 07/31/2022 at 9:06 Approved by: Kishor Snowden M.D. on 07/31/2022 at 9:16
== END ==
PROVIDERS: Family Provider Family Medicine; PCP Family Medicine; Referring Provider Family Medicine; Visit Provider Family Medicine
DX: S06.0X0D Concussion without loss of consciousness, subsequent encounter (principal); X58.XXXD Exposure to other specified factors, subsequent encounter
CPT/HCPCS: 70551

== ENCOUNTER → 2022-08-30 14:06 | Outpatient (CLI) | payer OTHER, SELFPAY ==
--- NOTE | 2022-08-30 14:07 | DI.RAD.S_ITS ---
PROCEDURE: XR CERVICAL SPINE 2V OR 3V INDICATIONS: neck pain TECHNIQUE: Three view(s) of the cervical spine were acquired. COMPARISON: None. FINDINGS: Bones: No fractures or dislocations to the T1 level. Trace retrolisthesis is C4-5. Moderate disc height loss C3-4, C4-5, and C5-6. The lateral masses of C1 appear intact on the odontoid view. No suspicious bony lesions. Soft tissues: No prevertebral soft tissue swelling. IMPRESSION: 1. Multilevel spondylosis C3 through C6 and trace C4-5 retrolisthesis. Dictated by: Jayda Gannon M.D. on 08/30/2022 at 17:50 Approved by: Jayda Gannon M.D. on 08/30/2022 at 17:56
== END ==
PROVIDERS: Family Provider Family Medicine; PCP Family Medicine; Referring Provider Family Medicine; Visit Provider Family Medicine
DX: M47.812 Spondylosis without myelopathy or radiculopathy, cervical region (principal); M54.2 Cervicalgia
CPT/HCPCS: 72040

== ENCOUNTER → 2022-09-28 15:54 | Outpatient (CLI) | payer OTHER, SELFPAY ==
--- NOTE | 2022-09-28 15:55 | DI.RAD.S_ITS ---
PROCEDURE: XR FOOT RT MIN 3V INDICATIONS: Base of right great toe pain TECHNIQUE: 3 views of the foot were acquired. COMPARISON: None. FINDINGS: Bones: No fractures or dislocations but there is mild metatarsus primus varus and mild hallux valgus morphology with mild bunion formation at the medial 1st metatarsal head. Secondary mild narrowing of the 1st MTP joint indicates presence of secondary mild osteoarthritis in that area.. No suspicious bony lesions. Soft tissues: No tibiotalar joint effusion. Achilles tendon appears normal. IMPRESSION: No trauma found but there are podiatry related findings as discussed above leading to mild osteoarthritis and medial bunion formation at the 1st MTP joint. Dictated by: Mekhi Casillas M.D. on 09/28/2022 at 16:58 Approved by: Mekhi Casillas M.D. on 09/28/2022 at 16:59
== END ==
PROVIDERS: Family Provider Family Medicine; PCP Family Medicine; Referring Provider Nurse Practitioner Family; Visit Provider Nurse Practitioner Family
DX: M20.11 Hallux valgus (acquired), right foot (principal); M21.611 Bunion of right foot; M21.171 Varus deformity, not elsewhere classified, right ankle; M79.671 Pain in right foot
CPT/HCPCS: 73630

== ENCOUNTER → 2022-11-30 14:53 | Outpatient (CLI) | payer OTHER, SELFPAY ==
--- NOTE | 2022-11-30 | DI.MG.S_ITS ---
BILATERAL DIGITAL SCREENING MAMMOGRAM 3D/2D WITH CAD WITH AUGMENTATION: 11/30/2022 CLINICAL: Routine screening. Comparison is made to exams dated: 07/21/2014 mammogram and 06/06/2010 mammogram - . Both breasts are heterogeneously dense, which may obscure small masses (category c / 51-75% glandular tissue). Current study was also evaluated with a Computer Aided Detection (CAD) system. There is a focal asymmetry in the left breast at 8 o'clock middle depth. No other significant masses, calcifications, or other findings are seen in either breast. IMPRESSION: INCOMPLETE: NEEDS ADDITIONAL IMAGING EVALUATION The focal asymmetry in the left breast is indeterminate. Additional views with possible ultrasound are recommended. Based on the Tyrer Cuzick model (a risk assessment model) the patient's lifetime risk is 12.3% and her 10 year risk is 5.6%. According to the ACR, ACS, and NCCN guidelines, an annual breast MRI exam along with mammogram is recommended if the patient's lifetime risk is 20% or greater. This exam was interpreted at Station ID: [id number]. NOTE: For mammograms, a report in lay terms will be sent to the patient. Approximately 15% of breast malignancies will not be visualized mammographically. In the management of a palpable breast mass, a negative mammogram must not discourage biopsy of a clinically suspicious lesion. Electronically Signed By: Molly junior/:11/30/2022 16:00:15 letter sent: Additional Imaging Needed ACR BI-RADS Category 0: Incomplete [id number]
--- NOTE | 2022-11-30 14:54 | DI.US.S_ITS ---
PROCEDURE: US ABDOMEN COMPLETE INDICATIONS: RIGHT UPPER QUADRANT PAIN. NASUEA. REFLUX. TECHNIQUE: Real-time scanning was performed of the abdominal and retroperitoneal organs, with image documentation. COMPARISON: [facility], CT, ABDOMEN/PELVIS WITH CONTRAST, 03/05/2016, 14:15. [facility], US, ABDOMEN COMPLETE, 02/06/2016, 14:34. FINDINGS: Liver: Liver is upper limits of normal in size and normal in echogenicity, with mildly heterogeneous echotexture that has not significantly changed when compared to the prior ultrasound. Gallbladder: The gallbladder appears normal without gallstones or gallbladder wall thickening. There is no pericholecystic fluid. Sonographic Parada sign is negative. Biliary ducts: Intrahepatic bile ducts are non-dilated. Extrahepatic bile duct caliber measures 6 mm. Normal is 6-7 mm or less in diameter, or 10 mm or less post-cholecystectomy. Pancreas: Visualized portions of the pancreas are sonographically normal. Spleen: Spleen is normal in size and homogeneous in echotexture. Kidneys: Kidneys are normal in size and echotexture. Right kidney measures 10.5 cm long; left kidney measures 11.0 cm long. No hydronephrosis or nephrolithiasis. No solid masses. Aorta: Visualized aorta is normal in caliber at less than 3 cm. Iliacs: Proximal common iliac arteries are normal in caliber at less than 2.5 cm. IVC: Intrahepatic inferior vena cava is patent. Miscellaneous: No free abdominal fluid. IMPRESSION: 1. No acute sonographic abnormality. Normal gallbladder. 2. Mildly heterogeneous hepatic echotexture is of uncertain significance, and does not appear significantly changed when compared to the prior ultrasound from 02/06/2016. No definite fatty infiltration. Approved by: Chip Ramirez M.D. on 11/30/2022 at 17:18
== END ==
PROVIDERS: Family Provider Family Medicine; PCP Family Medicine; Referring Provider Physician Assistant; Visit Provider Physician Assistant
DX: Z12.31 Encounter for screening mammogram for malignant neoplasm of breast (principal); K21.9 Gastro-esophageal reflux disease without esophagitis; R11.0 Nausea; R10.11 Right upper quadrant pain; R09.A2 Foreign body sensation, throat; N64.89 Other specified disorders of breast
CPT/HCPCS: 76700; 77063; 77067

== ENCOUNTER → 2022-12-20 12:04 | Outpatient (CLI) | payer OTHER, SELFPAY ==
--- NOTE | 2022-12-20 12:05 | DI.MG.S_ITS ---
UNILATERAL LEFT DIGITAL DIAGNOSTIC MAMMOGRAM 3D/2D WITH ADDITIONAL VIEWS: 12/20/2022 CLINICAL: Additional evaluation requested from prior study. Comparison is made to exams dated: 11/30/2022 mammogram, 07/21/2014 mammogram, and 06/06/2010 mammogram - . The left breast is heterogeneously dense, which may obscure small masses (category c / 51-75% glandular tissue). There is a focal asymmetry in the left breast at 8 o'clock middle depth. This is less prominent. No other significant masses or calcifications are seen in the breast. Left breast implant. IMPRESSION: INCOMPLETE: NEEDS ADDITIONAL IMAGING EVALUATION The focal asymmetry in the left breast most likely is fibroglandular tissue and is indeterminate. A targeted ultrasound is recommended and will immediately follow. Based on the Tyrer Cuzick model (a risk assessment model) the patient's lifetime risk is 12.3% and her 10 year risk is 5.6%. According to the ACR, ACS, and NCCN guidelines, an annual breast MRI exam along with mammogram is recommended if the patient's lifetime risk is 20% or greater. This exam was interpreted at Station ID: [id number]. NOTE: For mammograms, a report in lay terms will be sent to the patient. Approximately 15% of breast malignancies will not be visualized mammographically. In the management of a palpable breast mass, a negative mammogram must not discourage biopsy of a clinically suspicious lesion. Electronically Signed By: Compa Alexandra M.D. slc/:12/20/2022 12:51:42 ACR BI-RADS Category 0: Incomplete 3340F
--- NOTE | 2022-12-20 12:05 | DI.US.S_ITS ---
LIMITED ULTRASOUND OF LEFT BREAST: 12/20/2022 CLINICAL: Patient returns today to evaluate a focal asymmetry in the left breast. Comparison is made to exams dated: 12/20/2022 mammogram and 11/30/2022 mammogram - [facility]. Real-time ultrasound of the left breast 8 o'clock region was performed. James scale images of the real-time examination were reviewed. No significant abnormalities were seen sonographically in the left breast. IMPRESSION: NEGATIVE There is no sonographic evidence of malignancy. A 1 year screening mammogram is recommended. Exam findings were conveyed to the patient. This exam was interpreted at Station ID: [id number]. Electronically Signed By: Compa Alexandra M.D. slc/:12/20/2022 13:17:22 letter sent: Normal Exam Ultrasound BI-RADS: 1 Negative
== END ==
PROVIDERS: Family Provider Family Medicine; PCP Family Medicine; Referring Provider Physician Assistant; Visit Provider Physician Assistant
DX: R92.8 Other abnormal and inconclusive findings on diagnostic imaging of breast (principal)
CPT/HCPCS: 76642; 77065; G0279

== ENCOUNTER 2023-01-03 09:08 | Day surgery (SDC) | payer OTHER, SELFPAY ==
--- NOTE | 2023-01-03 | PATH_ITS ---
[facility] Accession Number: [id number] No. of containers..01 Tissue . 01 Material submitted: . colon - SIGMOID POLYP . 01 Diagnosis: Sigmoid Colon, Polyp: Tubulovillous adenoma. No evidence of malignancy or high-grade dysplasia. The excision appears complete. [facility] 01/16/2023 1057 Local . 01 Electronically signed: . Dora Hickman MD, Pathologist NPI- [id number] . 01 Gross description: . The specimen is received in formalin, labeled with the patient's name, , and sigmoid polyp, and consists of a estevez, soft tissue fragment measuring 1.5 x 1.1 x 1.0 cm. The presumed margin is inked blue. The specimen is trisected and submitted entirely in cassette A1. ([id number]) /[facility] 01/05/20231951 Local . 01 Pathologist provided ICD-10: D12.5 . 01 CPT . 092806 Specimen Comment: A courtesy copy of this report has been sent to [phone] Performed at: 01 [facility] [address] [place] [address] [id number] MD Eliecer Mckenzie MD Phone: [phone]
[2023-01-03 09:27] VITALS: BMI 23.8
[2023-01-03 09:34] VITALS: BP 131/85; PULSE 67; RESP 16; TEMP 36.5; O2SAT 98
[2023-01-03] MEDS: LACTATED RINGERS 1,000 ML 42 ML IV (09:39)
--- NOTE | 2023-01-03 10:40 | P.HP_ITS ---
History of Present Illness History of Present Illness Date Patient Seen: 01/03/23 Time Patient Seen: 10:40 Chief complaint: Screening Colonoscopy Narrative: Lorelei is a 62-year-old woman who presents for a colonoscopy. She has never had 1 before. She has no known family history of colon cancer. [facility] Medical History (Updated 01/03/23 @ 10:41 by Pastor Carranza MD) Herpes Carpal tunnel syndrome SVT (supraventricular tachycardia) (2014) Chronic neck pain Chicken pox Chronic back pain Hayfever Hypertension Hyperthyroidism (2014) Surgical History Anesthesia History of hip replacement (06/2012) History of hip replacement (11/2010) Social History marital status: household members: none lives independently: Yes occupational status: employed Smoking Status: Former smoker alcohol intake: current substance use type: does not use Meds Home Medications and Allergies Home Medications Medication Instructions Recorded Confirmed Type [FISH OIL] 1 cap PO DAILY ##0 11/27/10 01/03/23 History [MULTI VITAMIN] 1 tab PO ##0 11/27/10 10/25/22 History aspirin 325 mg tablet,delayed 81 mg PO QDAY ##0 11/17/21 01/03/23 History release atorvastatin 20 mg tablet 20 mg PO ONCE PM #90 tabs 09/28/22 01/03/23 Rx sodium,potassium,mag sulfates 17.5 See Rx Instructions PO .COMPLEX 11/01/22 Rx gram-3.13 gram-1.6 gram oral soln #354 mL (Suprep Bowel Prep Kit) metoprolol tartrate 100 mg tablet 100 mg PO DAILY 01/03/23 01/03/23 History Allergies Allergy/AdvReac Type Severity Reaction Status Date / Time adhesive Allergy Mild SENSITIVE Verified 09/28/22 15:27 TO TAPE CAUSES ITCHING Exam Vital Signs (past 8 hours): - 01/03/23 09:34 Temperature 97.7 F Pulse Rate 67 Respiratory Rate 16 Blood Pressure 131/85 Pulse Oximetry 98 Oxygen Delivery Method Nasal Cannula Oxygen Delivery Method Nasal Cannula Const General: healthy appearing Assessment & Plan Assessment and plan (1) Colon cancer screening: Status: Acute Plan We reviewed the risks and benefits of colonoscopy for colon cancer screening and she would like to proceed.
--- NOTE | 2023-01-03 11:03 | PM.OP.COLON ---
Operative Date/Time/Diagnoses Date of procedure: 01/03/23 Time of procedure: 11:03 Pre-op diagnosis: Colon cancer screening Post-op diagnosis: same Procedure & Clinicians Study performed: Colonoscopy Same procedure as scheduled: Yes Surgeon: Pastor Carranza Procedure Notes Procedure in detail: Surgeon: Pastor Carranza MD Anesthesia: Margaret Cintron CRNA Procedure: The patient was brought to the endoscopy suite, placed in left lateral decubitus position. The patient was connected to monitoring devices. A time-out was performed. Sedation was administered. Once the patient was adequately sedated, a digital rectal exam was performed and was normal. The scope was then inserted and advanced to the cecum where the appendiceal orifice was identified and photographed. The scope was then slowly withdrawn over greater than 6 minutes. The mucosa was thoroughly inspected. There was a 1.2 cm polyp near the rectosigmoid junction. It was removed with a hot snare. Good hemostasis was observed. The scope was retroflexed in the rectum. No other abnormalities were seen. The scope was straightened and removed. The patient was awakened and brought to recovery. Scope withdrawal time: 7 minutes Sedation time: 11 minutes EBL: 2 mL Findings: 1.2 cm polyp at the rectosigmoid junction Post-procedure Disposition: PACU
[2023-01-03 11:05] VITALS: BP 93/55; PULSE 70; RESP 12; TEMP 36.3; O2SAT 97
[2023-01-03 11:10] VITALS: BP 105/66; PULSE 61; RESP 22; O2SAT 94
[2023-01-03 11:14] VITALS: BP 121/64; PULSE 58; RESP 20; TEMP 36.4; O2SAT 100
[2023-01-03 11:17] VITALS: BP 114/64; PULSE 55; RESP 12; TEMP 36.3; O2SAT 100
== END 2023-01-03 11:35 | disposition home or self-care (01) ==
PROVIDERS: Family Provider Family Medicine; PCP Family Medicine; Referring Provider Surgery; Visit Provider Surgery
PROC: 0DJD8ZZ Inspection of Lower Intestinal Tract, Via Natural or Artificial Opening Endoscopic (ICD-10-PCS; CPT 45378; principal; 2023-01-03 10:15)
DX: Z12.11 Encounter for screening for malignant neoplasm of colon (principal); D12.5 Benign neoplasm of sigmoid colon
CPT/HCPCS: 45385

== ENCOUNTER → 2023-09-30 11:03 | Outpatient (CLI) | payer OTHER, SELFPAY ==
[2023-09-30 12:09] LABS: Appearance Urine UA CLEAR; Bilirubin Urine UA NEGATIVE (NEGATIVE); Color Urine UA YELLOW; Glucose Urine UA NEGATIVE (Negative); Ketones Urine UA NEGATIVE (NEGATIVE); Leukocyte Esterase Urine UA NEGATIVE (NEGATIVE); Nitrite Urine UA NEGATIVE (Negative); Occult Blood Urine UA NEGATIVE (Negative); Protein Urine UA NEGATIVE (Negative); Urobilinogen Urine UA 0.2 E.U./dL (0.2)
[2023-09-30 12:10] LABS: pH Urine UA 5.5 (4.5-8.0)
[2023-09-30 12:11] LABS: Add Manual Diff / Slide Review NO; Basophils Absolute Auto 100 /uL (0-100); Basophils Percent Auto 0.9 % (0-2); Eosinophils Absolute Auto 100 /uL (0-450); Eosinophils Percent Auto 1.9 % (2-4); Hematocrit 41.3 % (36-46); Hemoglobin 13.9 g/dL (12.0-16.0); Lymphocytes Absolute Auto 2200 /uL (1100-4500); Lymphocytes Percent Auto 32.9 % (25-40); Mean Corpuscular HGB Conc 33.6 % (30-36); Mean Corpuscular Hemoglobin 31.7 PG (26-34); Mean Corpuscular Volume 94.5 fL (80-100); Monocytes Absolute Auto 500 /uL (0-900); Monocytes Percent Auto 6.9 % (3-14); Neutrophils Absolute Auto 3800 /uL (1500-7000); Neutrophils Percent Auto 57.4 % (50-75); Platelet Count 304 X10^3/uL (150-400); Red Blood Cell Count 4.37 X10^6/uL (4.0-5.2); Red Cell Distribution Width 12.7 % (11.6-14.8); White Blood Cell Count 6.6 X10^3/uL (4.5-11.0)
[2023-09-30 12:11] LABS: Urine Volume 10mL (spun)
[2023-09-30 12:15] LABS: Bacteria Urine None Seen; Culture Indicated Urine Cult Not Indicated; RBC Urine None Seen (0-5/HPF); Squamous Epithelial Cell Urine None Seen (0-5/HPF); WBC Urine None Seen (0-5/HPF)
[2023-09-30 12:37] LABS: Alanine Aminotransferase 42 IU/L (<35); Albumin 4.4 g/dL (3.5-5.0); Albumin Globulin Ratio 1.5 (1.0-2.8); Alkaline Phosphatase 105 U/L (38-126); Aspartate Aminotransferase 44 IU/L (14-36); BUN Creatinine Ratio 19.8 (6-22); Bilirubin Total 0.5 mg/dL (0.2-1.3); Blood Urea Nitrogen 18 mg/dL (7-17); Calcium 9.7 mg/dL (8.4-10.2); Carbon Dioxide 31 mmol/L (22-32); Chloride 105 mmol/L (98-107); Estimated Glomerular Filt Rate > 60 mL/min (>60); Gamma Glutamyl Transpeptidase 55 U/L (12-43); Globulin 2.9 g/dL (1.7-4.1); Glucose 107 mg/dL (80-110); HEMOLYSIS < 15 (0-50); Lipase 103 U/L (23-300); Potassium 4.4 mmol/L (3.4-5.1); Sodium 140 mmol/L (137-145); Total Protein 7.3 g/dL (6.3-8.2)
== END ==
PROVIDERS: PCP Family Medicine; Referring Provider Family Medicine; Visit Provider Family Medicine
DX: R10.11 Right upper quadrant pain (principal)
CPT/HCPCS: 36415; 80053; 81001; 82977; 83690; 85025

== ENCOUNTER → 2023-10-01 12:54 | Outpatient (CLI) | payer OTHER, SELFPAY ==
--- NOTE | 2023-10-01 12:55 | DI.US.S_ITS ---
PROCEDURE: US ABDOMEN LIMITED INDICATIONS: RUQ PAIN TECHNIQUE: Real-time scanning was performed of the abdominal and retroperitoneal organs, with image documentation. COMPARISON: [facility], US, US ABDOMEN COMPLETE, 11/30/2022, 15:39. FINDINGS: Liver: Liver is normal in size and homogeneous in echotexture. Gallbladder: No gallstones. No wall thickening. No pericholecystic edema. Negative sonographic Parada's sign. Biliary ducts: Intrahepatic bile ducts are non-dilated. Extrahepatic bile duct caliber measures 4 mm. Normal is 6-7 mm or less in diameter, or 10 mm or less post-cholecystectomy. Pancreas: Visualized portions of the pancreas are sonographically normal. Miscellaneous: No free abdominal fluid. IMPRESSION: Normal right upper quadrant ultrasound. Dictated by: Nette Spears M.D. on 10/01/2023 at 14:31 Approved by: Nette Spears M.D. on 10/01/2023 at 14:32
== END ==
PROVIDERS: PCP Family Medicine; Referring Provider Family Medicine; Visit Provider Family Medicine
DX: R10.11 Right upper quadrant pain (principal)
CPT/HCPCS: 76705

== ENCOUNTER → 2023-10-22 17:10 | Outpatient (CLI) | payer OTHER, SELFPAY ==
--- NOTE | 2023-10-22 17:11 | DI.MRI.S_ITS ---
PROCEDURE: MR AB PANCREATIC/MRCP PROTOCOL INDICATIONS: elevated enzymes assoc with biliary tree TECHNIQUE: Coronal HASTE through the abdomen, axial 2-D FLASH in- and [id number], and breath-hold T2 FSE with fat saturation through the biliary system and pancreas. Oblique coronal and axial thin-slice HASTE, radial thick-slab HASTE centered on the extrahepatic bile ducts. Intravenous secretin: Not requested. COMPARISON: Ultrasound 10/01/2023 FINDINGS: Image quality: Mildly motion degraded Lower chest: No basal effusions. Breast implants are partially seen Liver: No suspicious focal lesion Gallbladder and biliary system: Unremarkable appearance of the gallbladder. The CBD appears nondilated, however there appears to be non filling of the mid CBD (6/7), with minimal upstream dilation. Pancreas: No ductal dilation or discrete mass identified. Indistinct nonfilling of the duct is seen at the pancreatic neck. Spleen: Nonenlarged Adrenals: No discrete nodules Kidneys: No solid mass or hydronephrosis Vessels and lymph nodes: The main portal vein appears mildly narrowed, but patent. No abdominal aortic aneurysm. No pathologic lymph nodes by size criteria Bowel and peritoneum: No evidence of bowel obstruction or pathologic ascites Body wall: Unremarkable Bones: Unremarkable, no suspicious enhancing lesion IMPRESSION: There is nonfilling of the mid CBD, with minimal upstream CHD and intrahepatic dilation (see image 6/7). The CBD itself is nondilated. There are no discrete stones. This may represent a benign or malignant stricture. Indistinct appearance of the pancreatic duct is also seen at the neck, without upstream dilation or discrete mass. In the setting of elevated liver enzymes, consider ERCP and close interval imaging follow-up depending on clinical context. Other findings above. Dictated by: Brown Lind M.D. on 10/23/2023 at 9:45 Approved by: Brown Lind M.D. on 10/23/2023 at 9:57
== END ==
LOC: MRI 17:10
PROVIDERS: PCP Family Medicine; Referring Provider Family Medicine; Visit Provider Family Medicine
DX: R74.8 Abnormal levels of other serum enzymes (principal)
CPT/HCPCS: 74183; A9579

== ENCOUNTER 2023-10-30 17:58 | Emergency (ER) | payer OTHER, SELFPAY ==
[2023-10-30 18:02] VITALS: BP 160/77; PULSE 73; RESP 16; TEMP 36.4; O2SAT 99; BMI 23.1
[2023-10-30 19:00] LABS: Alanine Aminotransferase 34 IU/L (<35); Albumin 4.4 g/dL (3.5-5.0); Albumin Globulin Ratio 1.7 (1.0-2.8); Alkaline Phosphatase 83 U/L (38-126); Aspartate Aminotransferase 38 IU/L (14-36); BUN Creatinine Ratio 18.8 (6-22); Bilirubin Total 0.8 mg/dL (0.2-1.3); Blood Urea Nitrogen 15 mg/dL (7-17); Calcium 9.7 mg/dL (8.4-10.2); Carbon Dioxide 30 mmol/L (22-32); Chloride 103 mmol/L (98-107); Estimated Glomerular Filt Rate > 60 mL/min (>60); Globulin 2.6 g/dL (1.7-4.1); Glucose 100 mg/dL (80-110); HEMOLYSIS < 15 (0-50); Lipase 87 U/L (23-300); Potassium 3.8 mmol/L (3.4-5.1); Sodium 139 mmol/L (137-145)
[2023-10-30 19:18] LABS: Add Manual Diff / Slide Review NO; Basophils Absolute Auto 100 /uL (0-100); Basophils Percent Auto 1.4 % (0-2); Eosinophils Absolute Auto 100 /uL (0-450); Eosinophils Percent Auto 1.4 % (2-4); Hematocrit 40.1 % (36-46); Hemoglobin 13.3 g/dL (12.0-16.0); Lymphocytes Absolute Auto 2700 /uL (1100-4500); Lymphocytes Percent Auto 50.1 % (25-40); Mean Corpuscular HGB Conc 33.3 % (30-36); Mean Corpuscular Hemoglobin 31.3 PG (26-34); Monocytes Absolute Auto 400 /uL (0-900); Monocytes Percent Auto 6.6 % (3-14); Neutrophils Absolute Auto 2200 /uL (1500-7000); Neutrophils Percent Auto 40.5 % (50-75); Platelet Count 252 X10^3/uL (150-400); Red Blood Cell Count 4.26 X10^6/uL (4.0-5.2); Red Cell Distribution Width 12.6 % (11.6-14.8); White Blood Cell Count 5.3 X10^3/uL (4.5-11.0)
--- NOTE | 2023-10-30 20:00 | EKG_ITS ---
[address] [address] Test Date: 2023-10-30 Pat Name: Lorelei Gan Department: [facility] Room: Gender: Female [employer] Operator: YOSSI : 1960 Requested By: Order Number: [id number] Reading MD: Zana Llanos Measurements Intervals Pillager Rate: 61 P: 52 OK: 204 QRS: 70 QRSD: 90 T: 34 QT: 424 QTc: 426 Interpretive Statements Normal sinus rhythm Electronically Signed On 10-31-2023 9:28:40 PDT by Zana Llanos
[2023-10-30] MEDS: ONDANSETRON 4 MG/2 ML INJ IV (20:42)
[2023-10-30 20:46] VITALS: BP 152/80; PULSE 66; RESP 16; O2SAT 99
--- NOTE | 2023-10-30 21:36 | ED_ITS ---
HPI - Abdominal Pain General Chief Complaint: Abdominal Pain Stated Complaint: ongoing abd issues with px Time Seen by Provider: 10/30/23 21:21 Source: patient Mode of arrival: Ambulatory History of Present Illness HPI narrative: 63-year-old female with a history of hypertension dyslipidemia, known stricture or narrowing at the CBD duct, patient states she has had right upper quadrant pain on and off for some time but had worsening starting in October. She initially had some chills earlier in the month but none since. She had had increased pain tonight. She has had nausea but no vomiting. She states bowel movements have been a strange consistency. She will have a normal bowel movement most sort of scattered like saw us to when she flushes the toilet. No black or bloody stools described. No uma-colored stools described. No urinary symptoms. States it is right upper quadrant wraps around to the back. She has been following with her primary care physician Dr. Lew who would like her to have a CT of her abdomen pelvis to evaluate the pancreas better. She did have an MRCP in the last week. She has not taken anything for pain today. Sensitivity to adhesive. Former smoker, occasional alcohol, no recreational drugs. Related Data Home Medications Medication Instructions Recorded Confirmed [FISH OIL] 1 cap PO DAILY ##0 11/27/10 10/28/23 [MULTI VITAMIN] 1 tab PO ##0 11/27/10 10/28/23 aspirin 325 mg tablet,delayed 81 mg PO QDAY ##0 11/17/21 10/28/23 release metoprolol tartrate 100 mg tablet 100 mg PO DAILY 01/03/23 10/28/23 Previous Rx's Medication Instructions Recorded sodium,potassium,mag sulfates 17.5 See Rx Instructions PO .COMPLEX 11/01/22 gram-3.13 gram-1.6 gram oral soln #354 mL (Suprep Bowel Prep Kit) metoprolol tartrate 50 mg tablet 50 mg PO DAILY #60 tabs 05/10/23 atorvastatin 20 mg tablet 20 mg PO QPM #90 tabs 09/13/23 ondansetron 4 mg disintegrating 4 mg PO Q6H PRN nausea and 10/28/23 tablet vomiting #30 tabs Allergies Allergy/AdvReac Type Severity Reaction Status Date / Time adhesive Allergy Mild SENSITIVE Verified 10/28/23 13:30 TO TAPE CAUSES ITCHING Review of Systems Review of Systems ROS Unobtainable: All systems reviewed & are unremarkable except as noted in HPI and below Patient History Medical History Herpes Carpal tunnel syndrome SVT (supraventricular tachycardia) (2014) Chronic neck pain Chicken pox Chronic back pain Hayfever Hypertension Hyperthyroidism (2014) Surgical History Anesthesia History of hip replacement (06/2012) History of hip replacement (11/2010) Social History marital status: household members: none lives independently: Yes occupational status: employed Smoking Status: Former smoker alcohol intake: current substance use type: does not use Smoking Status: Former smoker alcohol intake frequency: other Substance Use Type: does not use Exam Narrative Exam Narrative: GENERAL: Alert and oriented x three, female in mild distress HEENT: Head normocephalic, atraumatic, EOMI, pupils reactive, face symmetric, moist mucous membranes NECK: Supple, full range of motion CARDIOVASCULAR: Regular rate and rhythm without murmurs, rubs or gallops. RESPIRATORY: Breath sounds equal bilaterally, no wheezes rales or rhonchi. ABDOMEN: Soft, mild right upper quadrant tenderness. Normoactive bowel sounds all 4 quadrants. No guarding or rebound, rigidity, no mass : No CVA tenderness EXTREMITIES: Normal range of motion, no clubbing or edema. Neurovascularly intact NEUROLOGICAL: Cranial nerves II through XII grossly intact. Moving all extremities SKIN: Warm, dry, no petechiae, no rashes or lesions. Initial Vital Signs Initial Vital Signs: Vital Signs Temperature 97.6 F 10/30/23 18:02 Pulse Rate 73 10/30/23 18:02 Respiratory Rate 16 10/30/23 18:02 Blood Pressure 160/77 H 10/30/23 18:02 Pulse Oximetry 99 10/30/23 18:02 Oxygen Delivery Method Room Air 10/30/23 18:02 Course Orders Ordered: ED Orders 10/30/23 21:20 Urine Culture Stat 10/30/23 21:48 CT abdomen pelvis w con Stat Discontinued Medications Ketorolac Tromethamine (Ketorolac 30 Mg/Ml Vial) 15 mg IV NOW ONE Stop: 10/30/23 21:49 Last Admin: 10/30/23 22:13 Dose: 15 mg Documented By: HANNAH Ondansetron HCl (Ondansetron 4 Mg/2 Ml Inj) 4 mg IV NOW PRN PRN Reason: Nausea And Vomiting Last Admin: 10/30/23 20:42 Dose: 4 mg Documented By: HANNAH Ondansetron HCl (Ondansetron 4 Mg Odt) 4 mg PO NOW PRN PRN Reason: Nausea And Vomiting Ondansetron HCl (Ondansetron 4 Mg Odt Prepack) 1 bottle MISC DIRECTED ONE Stop: 10/30/23 23:44 Last Admin: 10/30/23 23:52 Dose: 1 bottle Documented By: KEVIN Vital Signs Vital signs: Vital Signs - 8 hr 10/30/23 22:10 10/30/23 23:59 Temperature 97.8 F Pulse Rate 66 70 Respiratory Rate 16 16 Blood Pressure 134/73 138/72 Pulse Oximetry 100 98 Oxygen Delivery Method Room Air Room Air MDM - Abdominal Pain Lab Data 10/30/23 18:42 10/30/23 18:42 Labs: Lab Results 10/30/23 Range/Units 18:42 WBC 5.3 (4.5-11.0) X10^3/uL RBC 4.26 (4.0-5.2) X10^6/uL Hgb 13.3 (12.0-16.0) g/dL Hct 40.1 (36-46) % MCV 94.0 (80-100) fL MCH 31.3 (26-34) PG MCHC 33.3 (30-36) % RDW 12.6 (11.6-14.8) % Plt Count 252 (150-400) X10^3/uL Neut % (Auto) 40.5 L (50-75) % Lymph % (Auto) 50.1 H (25-40) % [place] % (Auto) 6.6 (3-14) % Eos % (Auto) 1.4 L (2-4) % Baso % (Auto) 1.4 (0-2) % Neut # (Auto) 2200 (1719-5586) /uL Lymph # (Auto) 2700 (4652-5903) /uL [place] # (Auto) 400 (0-900) /uL Eos # (Auto) 100 (0-450) /uL Baso # (Auto) 100 (0-100) /uL Sodium 139 (137-145) mmol/L Potassium 3.8 (3.4-5.1) mmol/L Chloride 103 (98-107) mmol/L Carbon Dioxide 30 (22-32) mmol/L BUN 15 (7-17) mg/dL Creatinine 0.80 (0.52-1.04) mg/dL Estimated GFR > 60 (>60) mL/min BUN/Creatinine Ratio 18.8 (6-22) Glucose 100 (80-110) mg/dL Calcium 9.7 (8.4-10.2) mg/dL Total Bilirubin 0.8 (0.2-1.3) mg/dL AST 38 H (14-36) IU/L ALT 34 (<35) IU/L Alkaline Phosphatase 83 (38-126) U/L Total Protein 7.0 (6.3-8.2) g/dL Albumin 4.4 (3.5-5.0) g/dL Globulin 2.6 (1.7-4.1) g/dL Albumin/Globulin Ratio 1.7 (1.0-2.8) Lipase 87 (23-300) U/L Point of care testing: Urine Dip Bedside Urine Glucose Negative Bedside Urine Bilirubin - Negative Bedside Urine Ketone - Negative Urine Specific [place] 1.020 Bedside Urine Occult Blood - Negative Bedside Urine pH 5.5 Bedside Urine Protein - Negative Bedside Urine Urobilinogen - Negative Bedside Urine Nitrite - Negative Bedside Urine Leukocytes - Negative Esterase Imaging Data CT scan - abdomen/pelvis: Radiologist's Impression: Close Abdomen/Pelvis CT (Signed) Compa Alexandra - 10/30/23 Launch?[address] [address] [address] Scan Report Signed Patient: Lorelei Gan MR#: [id number] : 1960 Acct:[id number] Age/Sex: 63 / F Date of Service: 10/30/23 Loc: ED Accession Number: [id number] Procedure: CT abdomen pelvis w con Ordering Provider: Claudia Dunham D.O. PROCEDURE: CT ABDOMEN PELVIS W CON INDICATIONS: RUQ pain, hx CBD duct change on MRCP TECHNIQUE: After the administration of intravenous contrast, axial sections acquired from the lung bases to the pubic symphysis. Coronal and sagittal reformats were performed. For radiation dose reduction, the following was used: automated exposure control, adjustment of mA and/or kV according to patient size. COMPARISON: [facility], MR, MR AB PANCREATIC/MRCP PROTOCOL, 10/22/2023, 17:28. FINDINGS: Image quality: Diagnostic. Lower Chest: No significant findings. ABDOMEN: Liver: No solid mass. Gallbladder: No radiopaque gallstones or wall thickening. Biliary ducts: No biliary dilation. No filling defect identified. Pancreas: No ductal dilation. Spleen: Size is within normal limits. Adrenal Glands: No adrenal nodules. Kidneys and Ureters: No hydronephrosis. No solid mass. No complex renal cystic lesion which requires follow up. Stomach and Bowel: Normal colonic caliber, without significant wall thickening. The appendix is not identified. There is prominent stool in the colon. No small bowel obstruction. Stomach is decompressed. Peritoneum: No abnormal intraperitoneal fluid. No free air. Ventral Wall: No significant ventral hernia. Abdominal Nodes: No retroperitoneal or mesenteric adenopathy by size criteria. Vessels: Aorta and inferior vena cava are normal in size. PELVIS: Beam hardening artifact. Pelvic Organs: Uterus is not seen. Bladder: No bladder wall thickening, accounting for underdistention. Pelvic Nodes: No enlarged lymph nodes. Miscellaneous: No inguinal hernias are seen. Bones: No aggressive osseous abnormality. IMPRESSION: No biliary ductal dilatation appreciated. No free fluid. No calcified gallstones. Dictated by: Compa Alexandra M.D. on 10/30/2023 at 22:54 Approved by: Compa Alexandra M.D. on 10/30/2023 at 23:03 ECG Data Attestation: I personally reviewed and interpreted this ECG as follows: Interpretation: Sinus rhythm rate of 61 LA 204 QRS of [address] QTC [address] No acute ST elevation, nonspecific change. MDM Narrative Medical decision making narrative: 63-year-old female with acute on chronic right upper quadrant pain with known change at the CBD it has not dilated but there was concern for benign or malignant stricture with indistinct appearance of the pancreatic duct. Patient's labs overall are reassuring. Was given medication pain. She notes primary care sent her for CT abdomen pelvis. Labs show white count of 5.3 hemoglobin of 13 platelets of 252, predominance of lymphocytes. Sodium, potassium and chloride are normal CO2 is 30 BUN 15 creatinine 0.8, glucose is 100 calcium is 9.7 bilirubin is 0.8, AST is 38 with an ALT of 34, alk-phos is 83. Lipase is 87. Point of care urine is negative. Patient had an MRCP with a non feeling mid CBD with minimal upstream CHD and intrahepatic dilation CBD itself is not dilated there was no discrete stones may represent benign or malignant stricture indistinct appearance of the pancreatic duct also seen in the neck without upstream dilation or discrete mass. In the setting of elevated liver enzymes consider ERCP and close interval images of following up depending on clinical context. CT abdomen pelvis shows no ductal dilation no free fluid no calcified gallstones, acute changes appreciated. Reviewed findings with patient. No acute changes on CT. Patient already has not appointment on Saturday with Gastroenterology, there was discussion about ERCP ready. This sounds like the appropriate next step for the patient. She was feeling improved still has some mild nausea but no active vomiting. She would be agreeable to some antinausea medication for home. Discussed return precautions. 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 It sounds like he would already discussed the possibility of ERCP which sounds like the appropriate next step. Can take Zofran 1 tablet every 6 hours as needed for nausea. Please return if you have rapidly worsening symptoms, fevers, persistent or intractable pain, persistent vomiting, lightheadedness or passing out, black or bloody stools or other new or concerning changes. Prescriptions: No Action metoprolol tartrate 50 mg tablet 50 mg PO DAILY Qty: 60 3RF ondansetron 4 mg tablet,disintegrating 4 mg PO Q6H PRN (Reason: nausea and vomiting) Qty: 30 3RF [MULTI VITAMIN] 1 tab PO Qty: 0 [FISH OIL] 1 cap PO DAILY Qty: 0 aspirin 325 mg tablet,delayed release (DR/EC) 81 mg PO QDAY Qty: 0 sodium,potassium,mag sulfates [Suprep Bowel Prep Kit] 17.5-3.13-1.6 gram recon soln See Rx Instructions PO .COMPLEX Qty: 354 0RF Rx Instructions: take as directed by Physician atorvastatin 20 mg tablet 20 mg PO QPM Qty: 90 0RF metoprolol tartrate 100 mg tablet 100 mg PO DAILY Rx Instructions: TAKE ONE TABLET BY MOUTH TWICE DAILY Referrals: Tanya Lew MD [Primary Care Provider] - Be Armendariz MD [Physician] - Stand Alone Forms: Patient Portal/API
--- NOTE | 2023-10-30 21:48 | DI.CT.S_ITS ---
PROCEDURE: CT ABDOMEN PELVIS W CON INDICATIONS: RUQ pain, hx CBD duct change on MRCP TECHNIQUE: After the administration of intravenous contrast, axial sections acquired from the lung bases to the pubic symphysis. Coronal and sagittal reformats were performed. For radiation dose reduction, the following was used: automated exposure control, adjustment of mA and/or kV according to patient size. COMPARISON: [facility], MR, MR AB PANCREATIC/MRCP PROTOCOL, 10/22/2023, 17:28. FINDINGS: Image quality: Diagnostic. Lower Chest: No significant findings. ABDOMEN: Liver: No solid mass. Gallbladder: No radiopaque gallstones or wall thickening. Biliary ducts: No biliary dilation. No filling defect identified. Pancreas: No ductal dilation. Spleen: Size is within normal limits. Adrenal Glands: No adrenal nodules. Kidneys and Ureters: No hydronephrosis. No solid mass. No complex renal cystic lesion which requires follow up. Stomach and Bowel: Normal colonic caliber, without significant wall thickening. The appendix is not identified. There is prominent stool in the colon. No small bowel obstruction. Stomach is decompressed. Peritoneum: No abnormal intraperitoneal fluid. No free air. Ventral Wall: No significant ventral hernia. Abdominal Nodes: No retroperitoneal or mesenteric adenopathy by size criteria. Vessels: Aorta and inferior vena cava are normal in size. PELVIS: Beam hardening artifact. Pelvic Organs: Uterus is not seen. Bladder: No bladder wall thickening, accounting for underdistention. Pelvic Nodes: No enlarged lymph nodes. Miscellaneous: No inguinal hernias are seen. Bones: No aggressive osseous abnormality. IMPRESSION: No biliary ductal dilatation appreciated. No free fluid. No calcified gallstones. Dictated by: Compa Alexandra M.D. on 10/30/2023 at 22:54 Approved by: Compa Alexandra M.D. on 10/30/2023 at 23:03
[2023-10-30 22:10] VITALS: BP 134/73; PULSE 66; RESP 16; O2SAT 100
[2023-10-30] MEDS: KETOROLAC 30 MG/ML VIAL 15 MG IV (22:13)
[2023-10-30] MEDS: ONDANSETRON 4 MG ODT PREPACK 1 BOTTLE MISC (23:52)
[2023-10-30 23:59] VITALS: BP 138/72; PULSE 70; RESP 16; TEMP 36.6; O2SAT 98
== END 2023-10-30 23:59 | disposition home or self-care (01) ==
PROVIDERS: Emergency Provider Emergency Medicine; PCP Family Medicine
DX: K83.1 Obstruction of bile duct (principal)
CPT/HCPCS: 36415; 74177; 80053; 81003; 83690; 85025; 87086; 93005; 96374; 96375; 99284; J1885; J2405; Q9967

== ENCOUNTER → 2023-11-11 08:42 | Outpatient (CLI) | payer OTHER, SELFPAY ==
[2023-11-11 10:33] LABS: Alanine Aminotransferase 34 IU/L (<35); Albumin 4.1 g/dL (3.5-5.0); Albumin Globulin Ratio 1.8 (1.0-2.8); Alkaline Phosphatase 82 U/L (38-126); Aspartate Aminotransferase 38 IU/L (14-36); Bilirubin Total 0.6 mg/dL (0.2-1.3); Bilirubin Unconjugated 0.4 mg/dL (0.0-1.1); Globulin 2.3 g/dL (1.7-4.1); HEMOLYSIS < 15 (0-50); Total Protein 6.4 g/dL (6.3-8.2)
== END ==
LOC: LAB 08:43
PROVIDERS: PCP Family Medicine; Referring Provider Internal Medicine Gastroenterology; Visit Provider Internal Medicine Gastroenterology
DX: R79.89 Other specified abnormal findings of blood chemistry (principal); R10.11 Right upper quadrant pain; R63.4 Abnormal weight loss; K83.1 Obstruction of bile duct; R74.8 Abnormal levels of other serum enzymes
CPT/HCPCS: 80076

== ENCOUNTER → 2023-11-13 06:53 | Outpatient (CLI) | payer OTHER, SELFPAY ==
[2023-11-13 07:13] LABS: Lipase 99 U/L (23-300)
== END ==
PROVIDERS: PCP Family Medicine; Referring Provider Internal Medicine Gastroenterology; Visit Provider Internal Medicine Gastroenterology
DX: R79.89 Other specified abnormal findings of blood chemistry (principal); R10.11 Right upper quadrant pain; R63.4 Abnormal weight loss
CPT/HCPCS: 83690

== ENCOUNTER → 2023-12-26 13:58 | Outpatient (CLI) | payer OTHER, SELFPAY ==
--- NOTE | 2023-12-26 13:59 | DI.MG.S_ITS ---
BILATERAL DIGITAL SCREENING MAMMOGRAM 3D/2D WITH CAD WITH AUGMENTATION: 12/26/2023 CLINICAL: Routine screening. Comparison is made to exams dated: 11/30/2022 mammogram, 07/21/2014 mammogram, and 06/06/2010 mammogram - [facility]. The breasts are heterogeneously dense, which may obscure small masses (category c / 51-75% glandular tissue). Current study was also evaluated with a Computer Aided Detection (CAD) system. No significant masses, calcifications, or other findings are seen in either breast. There has been no significant interval change. IMPRESSION: NEGATIVE There is no mammographic evidence of malignancy. A 1 year screening mammogram is recommended. Based on the Tyrer Cuzick model (a risk assessment model) the patient's lifetime risk is 11.9% and her 10 year risk is 5.6%. According to the ACR, ACS, and NCCN guidelines, an annual breast MRI exam along with mammogram is recommended if the patient's lifetime risk is 20% or greater. This exam was interpreted at Station ID: [id number]. NOTE: For mammograms, a report in lay terms will be sent to the patient. Approximately 15% of breast malignancies will not be visualized mammographically. In the management of a palpable breast mass, a negative mammogram must not discourage biopsy of a clinically suspicious lesion. Electronically Signed By: Christopher lopez/milady:12/28/2023 01:13:58 letter sent: Normal Exam ACR BI-RADS Category 1: Negative
== END ==
PROVIDERS: PCP Family Medicine; Referring Provider Family Medicine; Visit Provider Family Medicine
DX: Z12.31 Encounter for screening mammogram for malignant neoplasm of breast (principal); R92.333 Mammographic heterogeneous density, bilateral breasts
CPT/HCPCS: 77063; 77067

== ENCOUNTER → 2024-08-04 10:31 | Outpatient (CLI) | payer MEDICARE, OTHER, SELFPAY ==
[2024-08-04 11:05] LABS: Add Manual Diff / Slide Review NO; Basophils Absolute Auto 100 /uL (0-100); Basophils Percent Auto 1.2 % (0-2); Eosinophils Absolute Auto 100 /uL (0-450); Eosinophils Percent Auto 2.6 % (2-4); Hematocrit 42.5 % (36-46); Hemoglobin 14.4 g/dL (12.0-16.0); Lymphocytes Absolute Auto 1800 /uL (1100-4500); Lymphocytes Percent Auto 37.2 % (25-40); Mean Corpuscular HGB Conc 33.9 % (30-36); Mean Corpuscular Hemoglobin 32.5 PG (26-34); Mean Corpuscular Volume 95.8 fL (80-100); Monocytes Absolute Auto 300 /uL (0-900); Monocytes Percent Auto 6.9 % (3-14); Neutrophils Absolute Auto 2600 /uL (1500-7000); Neutrophils Percent Auto 52.1 % (50-75); Platelet Count 271 X10^3/uL (150-400); Red Blood Cell Count 4.44 X10^6/uL (4.0-5.2); Red Cell Distribution Width 12.8 % (11.6-14.8); White Blood Cell Count 4.9 X10^3/uL (4.5-11.0)
[2024-08-04 11:29] LABS: Alanine Aminotransferase 37 IU/L (<35); Albumin 4.7 g/dL (3.5-5.0); Albumin Globulin Ratio 2.1 (1.0-2.8); Alkaline Phosphatase 77 U/L (38-126); Aspartate Aminotransferase 44 IU/L (14-36); BUN Creatinine Ratio 23.2 (6-22); Bilirubin Total 1.1 mg/dL (0.2-1.3); Blood Urea Nitrogen 19 mg/dL (7-17); Calcium 9.8 mg/dL (8.4-10.2); Carbon Dioxide 28 mmol/L (22-32); Chloride 104 mmol/L (98-107); Cholesterol 162 mg/dL (140-199); Estimated Glomerular Filt Rate > 60 mL/min (>60); Globulin 2.2 g/dL (1.7-4.1); Glucose 107 mg/dL (70-99); HDL Cholesterol 88 mg/dL (40-60); HEMOLYSIS < 15 (0-50); LDL Cholesterol Calculated 63 mg/dL (<100); Potassium 4.5 mmol/L (3.4-5.1); Sodium 138 mmol/L (137-145); Total Protein 6.9 g/dL (6.3-8.2); Triglycerides 54 mg/dL (35-150)
[2024-08-04 11:58] LABS: Thyroid Stimulating Hormone 1.39 uIU/mL (0.47-4.68)
== END ==
PROVIDERS: PCP Family Medicine; Referring Provider Family Medicine; Visit Provider Family Medicine
DX: R00.2 Palpitations (principal); Z13.220 Encounter for screening for lipoid disorders
CPT/HCPCS: 36415; 80053; 80061; 84443; 85025

== ENCOUNTER → 2024-08-06 13:36 | Outpatient (CLI) | payer MEDICARE, OTHER, SELFPAY | LOC: CAR 13:37 | PROVIDERS: PCP Family Medicine; Referring Provider Family Medicine; Visit Provider Family Medicine | DX: R00.2 Palpitations (principal) | CPT/HCPCS: 93246 ==